=== PATIENT | female | born 1940 | race Caucasian/White ===

== ENCOUNTER 2016-10-31 18:18 | Emergency (ER) | payer MEDICARE, BC ==
[2016-10-31] MEDS ORDERED: NORMAL SALINE 1,000 ML IV ONE (18:39)
[2016-10-31 19:05] LABS: Hematocrit 41.7 % (37.0-47.0); Hemoglobin 14.2 gm/dL (12.5-16.0); Mean Cell Volume 93.1 fl (78-100); Mean Corpuscular Hemoglobin 31.7 pg (27-31); Mean Corpuscular Hgb Conc 34.1 g/dl (32-36); Mean Platelet Volume 10.4 fl (6.0-9.5); Neutrophil # 6.4 K/mm3 (1.3-6.0); Neutrophil % 85.5 % (42-75.0); Platelet Count 142 K/mm3 (150-450); Red Blood Count 4.48 M/mm3 (4.2-5.4); Red Cell Distribution Width 12.9 % (11.5-14.0); White Blood Count 7.5 K/mm3 (4.0-10.5)
[2016-10-31 19:17] LABS: Albumin * 3.9 gm/dl (3.4-5.0); Anion Gap 11.9 mmol/L (6.8-13.8); BUN/Creatinine Ratio 27.1 (9.0-21.6); Bilirubin, Total 0.8 mg/dL (0.0-1.1); Ca. Corrected For Albumin 9.8 mg/dL (8.4-10.2); Carbon Dioxide 26.4 mmol/L (24-32.6); Potassium 3.3 mmol/L (3.4-4.6)
--- NOTE | 2016-10-31 19:30 | ERNOTE ---
<Gissell Horn - Last Filed: 10/31/16 19:38> Neuro HPI ER Record Date of Service: 10/31/16 Time Seen by Provider: 10/31/16 18:33 Source: family Immunizations: IMMUNIZATION HX History of Influenza Vaccine Yes Hx Pneumococcal Vaccination No Allergies/Adverse Reactions: Allergies Allergy/AdvReac Type Severity Reaction Status Date / Time alprazolam [From Xanax] Allergy Unknown Verified 10/31/16 18:34 gabapentin Allergy Unknown Verified 10/31/16 18:34 hydroxyzine Allergy Unknown Verified 10/31/16 18:34 losartan [Losartan] Allergy Unknown Verified 10/31/16 18:34 scopolamine Allergy Unknown Verified 10/31/16 18:34 sulindac [Sulindac] Allergy Unknown Verified 10/31/16 18:34 duloxetine HCl AdvReac Intermediate memory loss Verified 10/31/16 18:34 [From Cymbalta] Home Medications: HOME MEDICATIONS Aspirin [Aspirin Enteric Coated] 81 mg PO DAILY 05/06/13 [Last Taken Unknown] Gemfibrozil [Lopid] 600 mg PO BID 05/06/13 [Last Taken Unknown] Ginkgo Biloba 120 mg PO DAILY 05/06/13 [Last Taken Unknown] Simvastatin [Zocor] 40 mg PO DAILY 05/06/13 [Last Taken Unknown] Levothyroxine Sodium [Synthroid] 150 mcg PO DAILY 10/29/14 [Last Taken Unknown] Multivit with Iron-Minerals [Central-Simran For Seniors] 1 tab PO DAILY 11/12/14 [ Last Taken Unknown] amLODIPine BESYLATE [Norvasc] 2.5 mg PO DAILY 03/03/15 [Last Taken Unknown] Aspirin 325 mg PO PRN PRN 10/31/16 [Last Taken Unknown] Benzonatate [Tessalon Perle] 100 mg PO TID PRN #30 capsule 10/31/16 [Last Taken Unknown] Calcium Carb &Cit/Magnesium Ox [Calmag Thins Tablet] 1 each PO HS 10/31/16 [ Last Taken Unknown] Carboxymethylcellulose Sodium [Thera Tears] 1 drop EACHEYE DAILY 10/31/16 [Last Taken Unknown] Doxycycline Hyclate [Morgidox] 100 mg PO BID #14 capsule 10/31/16 [Last Taken Unknown] Fluticasone Propionate [Flonase] 1 spray NS DAILY 10/31/16 [Last Taken Unknown] Hydrochlorothiazide [Microzide] 12.5 mg PO DAILY 10/31/16 [Last Taken Unknown] Loratadine [Allergy Relief] 10 mg PO DAILY 10/31/16 [Last Taken Unknown] - History of Present Illness Narrative: Here for weakness, cough and fever which began yesterday and became progressively worse. Today pt feels weak and has had no food or drinks. Review of Systems - Review of Systems Constitutional: Present: weakness, fatigue, malaise, other - pt is a poor historian ENT: Present: no symptoms reported Respiratory: Present: cough Cardiology: Present: no symptoms reported Gastrointestinal/Abdominal: Present: no symptoms reported - Patient's Past Medical History Patient History - Medical: No pertinent hx Patient History - Cardiac/Respiratory: No pertinent hx Patient History - Cancer: No Hx of Cancer Patient History - Surgical Procedures: Cholecystectomy, Hysterectomy Patient History - Other: None - Social History Living Situations: home Smoking Status: Former smoker Alcohol Use: none Drug Use: none - Immunizations Hx Pneumococcal Vaccination: No History of Influenza Vaccine: Yes Physical Exam - Physical Exam General Appearance: Present: no apparent distress, other - pt has dementia and does not respond readily. She stares at me when questions are asked. she does have a fever for which she was given Tylenol Ears, Nose, Throat: Present: normal ENT inspection Neck: Present: normal inspection, nontender Respiratory: Present: no respiratory distress, normal breath sounds, lungs clear Gastrointestinal/Abdominal: Present: normal bowel sounds, nondistended, soft Extremity Exam: Present: normal inspection, non-tender, no edema Skin Exam: Present: normal color, warm/dry, cool/dry ED Progress - Results and Orders Patient's Lab Results:: I have reviewed the patient's lab results. - Vital Signs Patient's Vital Signs:: I have reviewed the patient's vital signs. Vital Signs: Vital Signs 10/31/16 10/31/16 18:24 18:44 Temperature 38.6 C H Pulse Rate 98 90 Respiratory 12 Rate Blood Pressure 141/67 O2 Sat by Pulse 93 Oximetry - Progress/Reassessment Chief Complaint: Altered Mental Status - Transfer of Care Physician Sign Out: Gissell Horn Receiving Physician: Truong Bolivar Pending Results: Labs Departure Clinical Impression: Pneumonia Altered mental status, unspecified Qualifiers: Altered mental status type: unspecified Qualified Code(s): R41.82 - Altered mental status, unspecified - Departure Disposition: Home self-care Condition: Good Instructions: Community-Acquired Pneumonia, Adult, [id number] Print Language: Mongolian Additional Instructions: Follow up with your doctor in tomorrow. Return to the ED as needed. Referrals: Graham Jackson DO [Primary Care Provider] - Prescriptions: Benzonatate [Tessalon Perle] 100 mg PO TID PRN #30 capsule PRN Reason: Cough Doxycycline Hyclate [Morgidox] 100 mg PO BID #14 capsule <Truong Bolivar - Last Filed: 10/31/16 21:55> Neuro HPI ER Record Immunizations: IMMUNIZATION HX History of Influenza Vaccine Yes Hx Pneumococcal Vaccination No ED Progress - Results and Orders Patient's Lab Results:: I have reviewed the patient's lab results. - Vital Signs Patient's Vital Signs:: I have reviewed the patient's vital signs. Vital Signs: Vital Signs 10/31/16 10/31/16 10/31/16 18:24 18:44 19:29 Temperature 38.6 C H 37.9 C H Pulse Rate 98 90 96 Respiratory 12 16 Rate Blood Pressure 141/67 141/64 O2 Sat by Pulse 93 96 Oximetry 10/31/16 20:11 Temperature 38.3 C H Pulse Rate 93 Respiratory 16 Rate Blood Pressure 132/59 O2 Sat by Pulse 93 Oximetry - Progress/Reassessment Progress Note-Subjective: 10/31/16 21:48 After nebulizer treatment the o2 sat was 100%. She was ambulated twice, on each trial there was a desaturation to less than 90%. The patient is asymptomatic after ambulation, and does not want to be admitted. It is suspected that there is a pneumonia that is not currently seen on the chest x-ray. She will be discharged with a prescription for Doxycycline and Tessalon pearls. - Transfer of Care Additional Notes: The care of the patient was picked up at the change of shift. At this time the patient is Ox 3, and appears comfortable. Awaiting the UA specimen.
[2016-10-31] MEDS ORDERED: ACETAMINOPHEN 325 MG TABLET PO ONE (19:34)
[2016-10-31] MEDS ORDERED: ACETAMINOPHEN 325 MG TABLET ONE (19:36)
[2016-10-31] MEDS ORDERED: POTASSIUM CHLORIDE 20 MEQ TABLET.SA PO ONE (19:45)
[2016-10-31] MEDS ORDERED: POTASSIUM CHLORIDE 20 MEQ TABLET.SA ONE (20:04)
[2016-10-31 20:12] VITALS: BP 132/59
[2016-10-31 20:33] LABS: Urine Bilirubin Negative (NEGATIVE); Urine Blood Negative /ul (NEGATIVE); Urine Ketone Negative (NEGATIVE); Urine Nitrite Negative (NEGATIVE); Urine Protein Negative (NEGATIVE); Urine Urobilinogen Normal (NORMAL)
[2016-10-31 20:42] LABS: Urine Appearance Clear; Urine Color Yellow
[2016-10-31 20:43] LABS: Urine Bacteria None Seen; Urine RBC None Seen /hpf (0-5); Urine WBC None Seen /hpf (0-5)
[2016-10-31 20:45] LABS: Cocaine Ur Negative (NEGATIVE); Urine Barbiturate Negative (NEGATIVE); Urine Benzodiazepines Negative (NEGATIVE); Urine Opiates Negative (NEGATIVE); Urine PCP Negative (NEGATIVE); Urine THC Negative (NEGATIVE)
[2016-10-31] MEDS ORDERED: ALBUTEROL SULFATE 2.5 MG/0.5 ML VIAL.NEB IH ONE ×4 (20:49→21:31)
[2016-10-31] MEDS ORDERED: DOXYCYCLINE HYCLATE 100 MG TABLET PO ONE (20:50)
[2016-10-31] MEDS ORDERED: DOXYCYCLINE HYCLATE 100 MG TABLET ONE (21:06)
== END 2016-10-31 22:10 | disposition home or self-care (01) ==
LOC: ER 18:18
DX: J18.9 Pneumonia, unspecified organism (principal); R41.82 Altered mental status, unspecified; Z87.891 Personal history of nicotine dependence
CPT/HCPCS: 36415; 70450; 71020; 80053; 81001; 83605; 85025; 87040; 87400; 99283; G0479

== ENCOUNTER 2017-05-10 20:45 | Emergency (ER) | payer MEDICARE, BC ==
--- NOTE | 2017-05-10 21:08 | ERNOTE ---
Medical Problem HPI - Narrative Date of Service: 05/10/17 - General Time Seen by Provider: 05/10/17 21:00 Source: patient, family, RN notes reviewed Exam Limitations: no limitations - Immun/Allergies/Home Medications Immunizations: IMMUNIZATION HX History of Influenza Vaccine Yes Hx Pneumococcal Vaccination No Allergies/Adverse Reactions: Allergies alprazolam [From Xanax] Allergy (Unknown, Verified 10/31/16 18:34) gabapentin Allergy (Unknown, Verified 10/31/16 18:34) hydroxyzine Allergy (Unknown, Verified 10/31/16 18:34) losartan [Losartan] Allergy (Unknown, Verified 10/31/16 18:34) scopolamine Allergy (Unknown, Verified 10/31/16 18:34) sulindac [Sulindac] Allergy (Unknown, Verified 10/31/16 18:34) duloxetine HCl [From Cymbalta] Adverse Reaction (Intermediate, Verified 18:34) memory loss Home Medications: HOME MEDICATIONS Aspirin [Aspirin Enteric Coated] 81 mg PO DAILY 05/06/13 [Last Taken Unknown] Gemfibrozil [Lopid] 600 mg PO BID 05/06/13 [Last Taken Unknown] Ginkgo Biloba 120 mg PO DAILY 05/06/13 [Last Taken Unknown] Simvastatin [Zocor] 40 mg PO DAILY 05/06/13 [Last Taken Unknown] Levothyroxine Sodium [Synthroid] 150 mcg PO DAILY 10/29/14 [Last Taken Unknown] Multivit-Min/FA/Lycopen/Lutein [Central-Simran For Seniors] 1 tab PO DAILY [Last Taken Unknown] amLODIPine BESYLATE [Norvasc] 2.5 mg PO DAILY 03/03/15 [Last Taken Unknown] Aspirin 325 mg PO PRN PRN 10/31/16 [Last Taken Unknown] Benzonatate [Tessalon Perle] 100 mg PO TID PRN #30 capsule 10/31/16 [Last Taken Unknown] Calcium Carb, Cit/Magnesium Ox [Calmag Thins Tablet] 1 each PO HS 10/31/16 [ Last Taken Unknown] Carboxymethylcellulose Sodium [Thera Tears] 1 drop EACHEYE DAILY 10/31/16 [Last Taken Unknown] Doxycycline Hyclate [Morgidox] 100 mg PO BID #14 capsule 10/31/16 [Last Taken Unknown] Fluticasone Propionate [Flonase] 1 spray NS DAILY 10/31/16 [Last Taken Unknown] Hydrochlorothiazide [Microzide] 12.5 mg PO DAILY 10/31/16 [Last Taken Unknown] Loratadine [Allergy Relief] 10 mg PO DAILY 10/31/16 [Last Taken Unknown] - History of Present History Narrative: This is a 76-year-old female who is a resident at a [facility]. The patient has been having increasing memory difficulty over the last several months. The information I obtained is from the patient's son. This son states that she was fine a year ago but over the last year she started having some memory problems. Over the last few months the memory problems have also progressed into emotional lability. The patient will become agitated, aggressive, belligerent at times. Very little can be done to calm her down when this happens. Apparently this happened today. Her is actually fairly cognizant was in the room with her and noticed her nodding off to sleep. He thought that she was fine when she went to sleep. She woke up approximately half an hour later yelling and combative. She did not seem to understand where she was or the people around her. The patient denies having any recollection of this. The patient at this time has no complaints except being frustrated at being held here in the hospital Timing: gone now Severity: severe Modifying Factors - (Improves): Present: other - nothing Modifying Factors - (Worsens): Present: other - nothing Review of Systems - Review of Systems Constitutional: Present: no symptoms reported EYE: Present: no symptoms reported ENT: Present: no symptoms reported Respiratory: Present: no symptoms reported Cardiology: Present: no symptoms reported, other - the patient completely and adamantly denies any complaints at the present. The only information I have is her confusion which was per the son. Gastrointestinal/Abdominal: Present: no symptoms reported Genitourinary: Present: no symptoms reported Musculoskeletal: Present: no symptoms reported Skin: Present: no symptoms reported Neurological: Present: no symptoms reported Endocrine: Present: no symptoms reported Hematologic/Lymphatic: Present: no symptoms reported Psych: Present: no symptoms reported All Other Systems: All systems neg except as marked - Patient's Past Medical History Patient History - Medical: No pertinent hx Patient History - Cardiac/Respiratory: No pertinent hx Patient History - Cancer: No Hx of Cancer Patient History - Surgical Procedures: Cholecystectomy, Hysterectomy Patient History - Other: None - Social History Living Situations: home Alcohol Use: none Drug Use: none - Immunizations Hx Pneumococcal Vaccination: No History of Influenza Vaccine: Yes Physical Exam - Physical Exam General Appearance: Present: wd/wn, alert, no apparent distress. Absent: anxious, lethargic Head Exam: Present: normal inspection, no evidence of injury. Absent: Leon's Sign, contusions, ecchymosis, flap, lacerations Eye Exam: Normal inspection: bilateral, PERRL: bilateral, EOMI: bilateral Ears, Nose, Throat: Present: normal ENT inspection, normal pharynx Neck: Present: normal inspection, nontender, supple, full range of motion Respiratory: Present: no respiratory distress, normal breath sounds, no accessory muscle use, chest nontender, lungs clear Cardiovascular/Chest: Present: regular rate, rhythm, no murmur, normal peripheral pulses Gastrointestinal/Abdominal: Present: normal bowel sounds, nontender, nondistended, soft, no organomegaly Rectal Exam: Present: nontender, normal rectal tone Back Exam: Present: normal inspection, normal range of motion, no CVA tenderness , no vertebral tenderness Extremity Exam: Present: normal inspection, non-tender, no edema Neurological Exam: Present: alert, normal mood/affect, no motor/sensory deficits , other - patient is not oriented to time. She does not know the year, month, day. She does recognize her family. Per the son this is her baseline. Skin Exam: Present: normal color, warm/dry Lymphatic Exam: Present: no adenopathy ED Progress - EKG EKG Comments: Patient's EKG demonstrates normal sinus rhythm. She does have what appears to be new T-wave inversions in V3 and V4. Troponin was performed and is negative. No signs of acute ischemia in the form of ST elevation or depression - X-Ray X-Ray #1 X-Ray: chest Interpretation: Interp. by me - no acute cardiopulmonary disease Departure - Departure Clinical Impression: Hypokalemia, Agitation Disposition: Other health care facility Condition: Stable Instructions: Hypokalemia Additional Instructions: As we discussed, you need to recognize that at times he will become acutely confused. You need to listen to the people around to an trusting her caregivers. Please do not argue with staff. Your potassium level is low. You should eat a banana or have a multivitamin each day. I want you to call your family doctor and set up a follow-up appointment. Certainly if you develop new or worrisome symptoms she should return to the ER. If you become agitated tonight the staff can give you the 1/2 mg of Xanax which I have prescribed. Referrals: Graham Jackson DO [Primary Care Provider] -
--- OUTSIDE RECORDS SUMMARY | 2017-05-10 21:19 | XMS REPORT | Clinical Summary ---
:1940 Author Organization [facility] Address Unavailable [place] [id number] Care Team Providers Name Role Phone Unavailable Primary Care Provider Unavailable Source Comments This disclosure is being made pursuant to the [employer] program and maynot contain all information available regarding this patient.[facility] Allergies Not on File Current Medications Be aware that medications may not be up to date as of this document. Alwaysverify current medications with the patient. Not on file Active Problems Not on file Social History Tobacco Use Types Packs/Day Years Used Date Never Assessed Sex Assigned at Date Recorded Not on file Last Filed Vital Signs Not on file Plan of Treatment Health Maintenance Due Date Last Done Comments Tetanus/Pertussis (1 - Tdap) 1957 Well Adult Visit 1988 Zoster Vaccine 60+ 1998 Bone Density 2003 Pneumococcal Low/Medium Risk 65+ (1 of 2 - PCV13) 2003 INFLUENZA IMMUNIZATION (#1) 2017 Results Not on filefrom Last 3 Months
[2017-05-10 21:23] LABS: Hemoglobin 13.1 gm/dL (12.5-16.0); Mean Corpuscular Hemoglobin 32.9 pg (27-31); Mean Corpuscular Hgb Conc 35.4 g/dl (32-36); Mean Platelet Volume 10.1 fl (6.0-9.5); Neutrophil # 4.6 K/mm3 (1.3-6.0); Neutrophil % 64.7 % (42-75.0); Platelet Count 183 K/mm3 (150-450); Red Blood Count 3.98 M/mm3 (4.2-5.4); Red Cell Distribution Width 12.9 % (11.5-14.0); White Blood Count 7.1 K/mm3 (4.0-10.5)
[2017-05-10 21:37] LABS: Albumin * 4.3 gm/dl (3.4-5.0); Anion Gap 17.9 mmol/L (6.8-13.8); BUN/Creatinine Ratio 20.7 (9.0-21.6); Bilirubin, Total 1.1 mg/dL (0.0-1.1); Ca. Corrected For Albumin 9.7 mg/dL (8.4-10.2); Calcium * 10.3 mg/dL (7.9-10.9); Potassium 2.9 mmol/L (3.4-4.6); Total Protein 7.4 gm/dL (6.2-8.2)
[2017-05-10] MEDS ORDERED: POTASSIUM CHLORIDE 20 MEQ TABLET.SA PO ONE (21:38)
[2017-05-10 22:07] LABS: Urine Bilirubin Negative (NEGATIVE); Urine Blood Negative /ul (NEGATIVE); Urine Ketone Negative (NEGATIVE); Urine Nitrite Negative (NEGATIVE); Urine Protein Negative (NEGATIVE); Urine Urobilinogen Normal (NORMAL)
[2017-05-10] MEDS ORDERED: POTASSIUM CHLORIDE 20 MEQ TABLET.SA ONE (22:21)
[2017-05-10 22:24] LABS: Cocaine Ur Negative (NEGATIVE); Urine Barbiturate Negative (NEGATIVE); Urine Benzodiazepines Negative (NEGATIVE); Urine Opiates Negative (NEGATIVE); Urine PCP Negative (NEGATIVE); Urine THC Negative (NEGATIVE)
[2017-05-10 22:39] LABS: Urine Appearance Clear; Urine Color Yellow
[2017-05-10 22:40] LABS: Urine Bacteria 2+; Urine Mucus Many - 3+; Urine RBC 0-5 /hpf (0-5); Urine WBC 0-5 /hpf (0-5); Urine Yeast Few - 1+
[2017-05-10] MEDS ORDERED: CIPROFLOXACIN HCL 250 MG TABLET ONE (23:02)
[2017-05-10 23:23] LABS: Methemoglobin % 0.3 % (0.41-1.15)
[2017-05-10 23:27] LABS: Carboxyhemoglobin % 1.8 % (0.5-1.5)
[2017-05-10] MEDS ORDERED: ALPRAZolam 0.25 MG TABLET PO ONE (23:39)
[2017-05-10] MEDS ORDERED: LORazepam 1 MG TABLET ONE (23:44)
[2017-05-10] MEDS ORDERED: ALPRAZolam 0.25 MG TABLET ONE (23:56)
[2017-05-11 03:33] VITALS: BP 130/74
== END 2017-05-11 00:42 | disposition short-term general hospital (02) ==
LOC: ER 20:45
DX: E87.6 Hypokalemia (principal); R45.1 Restlessness and agitation

== ENCOUNTER 2019-10-19 10:11 | Observation (INO) ==
--- NOTE | 2019-10-19 10:40 | ERNOTE ---
Neuro HPI ER Record Date of Service: 10/19/19 Presenting Symptoms: weakness, difficulty walking Time Seen by Provider: 10/19/19 10:23 Source: family Exam Limitations: dementia Immunizations: IMMUNIZATION HX Immunizations Up to Date Yes History of Influenza Vaccine More Information Required Hx Pneumococcal Vaccination More Information Required Allergies/Adverse Reactions: Allergies Allergy/AdvReac Type Severity Reaction Status Date / Time alprazolam [From Xanax] Allergy Unknown Verified 10/19/19 13:02 gabapentin Allergy Unknown Verified 10/19/19 13:02 hydroxyzine Allergy Unknown Verified 10/19/19 13:02 losartan [Losartan] Allergy Unknown Verified 10/19/19 13:02 scopolamine Allergy Unknown Verified 10/19/19 13:02 sulindac [Sulindac] Allergy Unknown Verified 10/19/19 13:02 duloxetine HCl AdvReac Intermediate memory loss Verified 10/19/19 13:02 [From Cymbalta] bupropion [From Zyban] AdvReac Unknown Verified 10/19/19 13:02 lorazepam AdvReac Unknown Verified 10/19/19 13:02 phenylephrine AdvReac Unknown Verified 10/19/19 13:02 [From Murocoll-2] Home Medications: HOME MEDICATIONS Aspirin [Aspirin Enteric Coated] 81 mg PO DAILY 05/06/13 [Last Taken Unknown] calcium carb-magnesium oxide-vit C 400 mg calcium-117 mg-167 mg tablet 1 tab PO DAILY tab 04/10/18 [Last Taken Unknown] carboxymethylcellulose sodium 0.5 % eye drops 1 drp OP QID PRN ml 04/10/18 [Last Taken Unknown] gemfibrozil 600 mg tablet 600 mg PO BID #60 tab 05/23/18 [Last Taken Unknown] docusate sodium 100 mg capsule 100 mg PO DAILY #30 cap 06/26/18 [Last Taken Unknown] polyethylene glycol 3350 17 gram/dose oral powder 17 g PO DAILY PRN #255 g 06/26/18 [Last Taken Unknown] donepezil 10 mg tablet 10 mg PO HS #30 tab 06/30/18 [Last Taken Unknown] simvastatin 40 mg tablet 40 mg PO QPM #30 tab 10/01/18 [Last Taken Unknown] acetaminophen 325 mg tablet 650 mg PO Q6H PRN #60 tab 02/16/19 [Last Taken Unknown] haloperidol lactate 2 mg/mL oral concentrate 2 mg PO QPM ml 03/30/19 [Last Taken Unknown] levothyroxine 150 mcg tablet 150 mcg PO DAILY #30 tab 03/30/19 [Last Taken Unknown] Multivitamin [One-Daily Multi-Vitamin] 1 tab PO DAILY 04/04/19 [Last Taken Unknown] risperidone 0.5 mg tablet 0.5 mg PO Q12H PRN #60 tab 07/15/19 [Last Taken Unknown] ginkgo biloba leaf extract 60 mg capsule 60 mg PO DAILY #30 cap 07/22/19 [Last Taken Unknown] sertraline 100 mg tablet 150 mg PO DAILY #135 tab 09/14/19 [Last Taken Unknown] - Pain Score Pain Score #1 Pain Score: 0 - History of Present Illness Narrative: The patient is a 79 year old female who presents for weakness which has been present since Saturday. There are associated symptoms of increased fatigue. The patient denies pain and has no objective signs of pain. There are no alleviating factors. There are no aggravating factors. Previous treatments have included: none. The past medical history includes: CVA, dementia, HTN, HLD and hypothyroid The social history is positive for former smoker. The patient has had no ill contacts. Son states that he was notified by care center on Saturday that patient was having increased weakness as well as increased mental status change but her vitals were stable and they opted not to send her to the ER for evaluation. Son states he saw patient on Saturday and Saturday and noted her to have slight droop to left side of face. Son also states that patient was having gait changes, typically ambulatory with walking but increased weakness as well as inability to continue straight during activity. Review of Systems - Narrative Narrative: Patient has dementia but is oriented to self and place. Patient disoriented to situation. ROS reviewed with patient as well as son at bedside. - Review of Systems Constitutional: Present: weakness. Absent: recent illness, fever ENT: Present: no symptoms reported. Absent: ear pain, nasal drainage, sore throat Respiratory: Absent: cough Cardiology: Present: no symptoms reported. Absent: chest pain Gastrointestinal/Abdominal: Present: no symptoms reported. 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 Dementia, unspecified, with behavioral disturbance Onset Date: 06/05/17 Hemorrhoids Hyperlipemia Hypertension Hypokalemia Hypothyroidism Memory loss Meniere's disease Osteopenia Basal cell carcinoma Dizziness Surgical History: Surgical History (Last Reviewed 10/19/19 @ 12:49 by KWAME Dunne) H/O foot surgery UNSPECIFIED X3 History of cataract extraction Hx of cholecystectomy Hx of hernia repair Hx of hysterectomy Hx of lumpectomy Hx of shoulder replacement RIGHT Family History: Family History (Last Reviewed 10/19/19 @ 12:49 by KWAME Dunne) Other Unknown family medical history Social History: (Last Reviewed 10/19/19 @ 12:49 by KWAME Dunne) Social History: Marital status: / lives independently: No Service: No Tobacco: Smoking Status: Former smoker Alcohol: alcohol intake: never Substance Use: substance use type: does not use Dietary Habits: caffeine: No Personal Safety: victim of physical abuse: No victim of emotional abuse: No Physical Exam - Physical Exam General Appearance: Present: wd/wn, alert, no apparent distress Head Exam: Present: normal inspection, no evidence of injury Eye Exam: Normal inspection: bilateral, PERRL: bilateral, EOMI: bilateral Neck: Present: normal inspection, nontender Respiratory: Present: no respiratory distress, normal breath sounds, no accessory muscle use, lungs clear Cardiovascular/Chest: Present: regular rate, rhythm, no murmur Gastrointestinal/Abdominal: Present: normal bowel sounds, nontender, nondistended, soft, no organomegaly Neurological Exam: Present: alert, normal mood/affect, no motor/sensory deficits, 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 Absent: disoriented to person, disoriented to place Tyrel Coma Scale - Assess Eye Opening: Spontaneous Motor: Obeys Commands Verbal: Confused - Total Coma Scale Total: 14 Initial Stroke Assessment - NIH Stroke Scale Level of Consciousness: Alert LOC Questions (Year and Age): Answers neither correctly LOC Commands (open/close eyes/fist): Performs both correctly Lateral Gaze Paresis: None Visual Field Loss: No visual loss Facial Palsy: Minor paralysis - left Right Arm Motor (10 sec hold): No drift Left Arm Motor (10 sec hold): No drift Right Leg Motor (5 sec hold): No drift Left Leg Motor (5 sec hold): No drift Limb Ataxia (finger/nose heel/snow): Absent Sensory Loss (pinprick arms/legs/face): No sensory loss Language Aphasia (description/naming/reading): No aphasia; normal Dysarthria (speech clarity): Normal articulation Neglect Inattention (visual/tactile/auditory/spatial/person): No neglect Initial Stroke Scale Score:: 3 Progress - Date and Time Seen: Date and Time: 10/19/19 10:28 Patient evaluated during triage. 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 10/19/19 12:00 Discussed results of testing as well as plan of care with son at bedside. Patient having intermittent periods of agitation and restlessness. Nurse assisting patient to commode, patient able to assist with transfers. 10/19/19 12:39 Case discussed with , will admit for observation with plan of MRI to further evaluate symptoms of weakness and gait changes. - Results and Orders Patient's Lab Results:: I have reviewed the patient's lab results. - Vital Signs Patient's Vital Signs:: I have reviewed the patient's vital signs. Vital Signs: Vital Signs 10/19/19 10:28 Temperature 36.3 C Pulse Rate 59 L Respiratory Rate 20 Blood Pressure 194/84 H O2 Sat by Pulse Oximetry 96 - X-Ray X-Ray #1 X-Ray: chest Interpretation: Reviewed by me X-ray Comments: IMPRESSION: 1. NO ACUTE CARDIOPULMONARY PROCESS. Electronically signed by Gabe Camacho M.D.. - CT/Ultrasound CT/Ultrasound Narrative: IMPRESSION: 1. NO ACUTE INTRACRANIAL PROCESS. IF THERE IS CONTINUED CLINICAL CONCERN, FOLLOW-UP CT OR MRI IS RECOMMENDED. Electronically signed by Gabe Camacho M.D.. - Progress/Reassessment Chief Complaint: Altered Mental Status Departure Clinical Impression: Weakness, Gait disturbance - Departure Disposition: Still a patient Condition: Fair
[2019-10-19 10:45] LABS: Hematocrit 39.3 % (37.0-47.0); Hemoglobin 13.2 gm/dL (12.5-16.0); Mean Cell Volume 95.2 fl (78-100); Mean Corpuscular Hgb Conc 33.6 g/dl (32-36); Mean Platelet Volume 9.6 fl (8-12.5); Neutrophil # 4.2 K/mm3 (1.3-6.0); Neutrophil % 66.8 % (42-75.0); Platelet Count 197 K/mm3 (150-450); Red Blood Count 4.13 M/mm3 (4.2-5.4); White Blood Count 6.3 K/mm3 (4.0-10.5)
[2019-10-19 11:00] LABS: Albumin * 3.6 gm/dl (3.4-5.0); BUN/Creatinine Ratio 25.3 (9.0-21.6); Bilirubin, Total 0.6 mg/dL (0.0-1.1); Ca. Corrected For Albumin 10.5 mg/dL (8.4-10.2); Calcium * 10.5 mg/dL (7.9-10.9); Carbon Dioxide 27.8 mmol/L (24-32.6); Potassium 3.8 mmol/L (3.4-4.6); Total Protein 7.1 gm/dL (6.2-8.2)
[2019-10-19 11:01] LABS: Prothrombin Time (Patient) 11.2 Seconds (9.1-10.7)
[2019-10-19 12:04] LABS: INR 1.14 INR (0.92-1.08); Partial Thrombolplastin Time 28.4 Seconds (24-32)
[2019-10-19 12:54] LABS: Urine Bilirubin Negative (NEGATIVE); Urine Blood Negative /ul (NEGATIVE); Urine Ketone Negative (NEGATIVE); Urine Nitrite Negative (NEGATIVE); Urine Protein Negative (NEGATIVE); Urine Urobilinogen Normal (NORMAL)
[2019-10-19 13:00] LABS: Urine Appearance Clear (CLEAR); Urine Bacteria 1+; Urine Color Yellow; Urine RBC None Seen /hpf (0-5); Urine WBC 0-5 /hpf (0-5)
[2019-10-19] MEDS ORDERED: POLYETHYLENE GLYCOL 3350 17 GM PACKET PO PRN (15:23)
[2019-10-19] MEDS ORDERED: ACETAMINOPHEN 325 MG TABLET PO PRN (15:23)
[2019-10-19] MEDS ORDERED: POLYVINYL ALCOHOL 150 DROP BTL EACHEYE PRN (15:23)
[2019-10-19] MEDS: risperiDONE 0.25 MG TABLET PO PRN (16:42)
[2019-10-19] MEDS ORDERED: HALOPERIDOL 1 MG TABLET PO SCH (17:00)
[2019-10-19] MEDS ORDERED: SIMVASTATIN 40 MG TABLET PO SCH (17:00)
[2019-10-19] MEDS ORDERED: LORazepam 2 MG/ML DISP.SYRIN IV ONE (19:00)
[2019-10-19] MEDS ORDERED: traZODone HCL 50 MG TABLET PO SCH (21:00)
[2019-10-19] MEDS ORDERED: DONEPEZIL HCL 10 MG TABLET PO SCH (21:00)
[2019-10-19] MEDS: GEMFIBROZIL 600 MG TABLET PO SCH (23:18)
[2019-10-20] MEDS ORDERED: LEVOTHYROXINE SODIUM 150 MCG TABLET PO SCH (07:00)
--- NOTE | 2019-10-20 08:12 | HP ---
Chief Complaint - Chief Complaint Date of Service: 10/19/19 Time of Service: 16:00 Chief Complaint: Weakness, facial droop History of Present Illness: Sidney is an 79 yo female who resides in the memory unit at [facility]. She has Alzheimer's dementia which has been progressively getting worse over the last year. Last week she was noted to be getting even weaker than normal. She did not have any focal weakness. Over the weekend it was noted that she had facial drooping and son reports leaning to the right. Today she reported had more difficulty with walking, was very tearful. It is reported she was having left sided facial droop in the ER. I do not appreciate any abnormality and the son reports it had been the right with right sided leaning. He reports she has been having more problems sleeping and being restless at night. 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 Dementia, unspecified, with behavioral disturbance Onset Date: 06/05/17 Hemorrhoids Hyperlipemia Hypertension Hypokalemia Hypothyroidism Memory loss Meniere's disease Osteopenia Basal cell carcinoma Dizziness Surgical History: Surgical History (Last Reviewed 10/19/19 @ 13:02 by Edison Fry RN) H/O foot surgery UNSPECIFIED X3 History of cataract extraction Hx of cholecystectomy Hx of hernia repair Hx of hysterectomy Hx of lumpectomy Hx of shoulder replacement RIGHT Family History: Family History (Last Reviewed 10/19/19 @ 13:02 by Edison Fry RN) Other Unknown family medical history Social History: (Last Reviewed 10/19/19 @ 13:02 by Edison Fry RN) Social History: Marital status: / lives independently: No Service: No Tobacco: Smoking Status: Former smoker Alcohol: alcohol intake: never Substance Use: substance use type: does not use Dietary Habits: caffeine: No Personal Safety: victim of physical abuse: No victim of emotional abuse: No Review Of Systems (GEN) - Review of Systems Generalized/Overall Review: Present: Weakness. Absent: Chills, Fever EENTM: Present: No Symptoms Reported Respiratory: Absent: Cough, Shortness of Breath Cardiac: Absent: Chest Pain, Edema Abdominal: Absent: Nausea, Vomiting Genitourinary: Present: No Symptoms Reported Musculoskeletal: Present: No Symptoms Reported Neurological: Present: Anxiety, Emotional Problems, Weakness Skin: Present: No Symptoms Reported Endocrine: Present: No Symptoms Reported Immunizations: IMMUNIZATION HX Immunizations Up to Date Yes History of Influenza Vaccine More Information Required Hx Pneumococcal Vaccination More Information Required Allergies/Adverse Reactions: Allergies Allergy/AdvReac Type Severity Reaction Status Date / Time alprazolam [From Xanax] Allergy Unknown Verified 10/19/19 13:02 gabapentin Allergy Unknown Verified 10/19/19 13:02 hydroxyzine Allergy Unknown Verified 10/19/19 13:02 losartan [Losartan] Allergy Unknown Verified 10/19/19 13:02 scopolamine Allergy Unknown Verified 10/19/19 13:02 sulindac [Sulindac] Allergy Unknown Verified 10/19/19 13:02 duloxetine HCl AdvReac Intermediate memory loss Verified 10/19/19 13:02 [From Cymbalta] bupropion [From Zyban] AdvReac Unknown Verified 10/19/19 13:02 lorazepam AdvReac Unknown Verified 10/19/19 13:02 phenylephrine AdvReac Unknown Verified 10/19/19 13:02 [From Murocoll-2] Home Medications: HOME MEDICATIONS Aspirin [Aspirin Enteric Coated] 81 mg PO DAILY 05/06/13 [Last Taken Unknown] calcium carb-magnesium oxide-vit C 400 mg calcium-117 mg-167 mg tablet 1 tab PO DAILY tab 04/10/18 [Last Taken Unknown] carboxymethylcellulose sodium 0.5 % eye drops 1 drp OP QID PRN ml 04/10/18 [Last Taken Unknown] gemfibrozil 600 mg tablet 600 mg PO BID #60 tab 05/23/18 [Last Taken Unknown] docusate sodium 100 mg capsule 100 mg PO DAILY #30 cap 06/26/18 [Last Taken Unknown] polyethylene glycol 3350 17 gram/dose oral powder 17 g PO DAILY PRN #255 g 06/26/18 [Last Taken Unknown] donepezil 10 mg tablet 10 mg PO HS #30 tab 06/30/18 [Last Taken Unknown] simvastatin 40 mg tablet 40 mg PO QPM #30 tab 10/01/18 [Last Taken Unknown] acetaminophen 325 mg tablet 650 mg PO Q6H PRN #60 tab 02/16/19 [Last Taken Unknown] haloperidol lactate 2 mg/mL oral concentrate 2 mg PO QPM ml 03/30/19 [Last Taken Unknown] levothyroxine 150 mcg tablet 150 mcg PO DAILY #30 tab 03/30/19 [Last Taken Unknown] Multivitamin [One-Daily Multi-Vitamin] 1 tab PO DAILY 04/04/19 [Last Taken Unknown] risperidone 0.5 mg tablet 0.5 mg PO Q12H PRN #60 tab 07/15/19 [Last Taken Unknown] ginkgo biloba leaf extract 60 mg capsule 60 mg PO DAILY #30 cap 07/22/19 [Last Taken Unknown] sertraline 100 mg tablet 150 mg PO DAILY #135 tab 09/14/19 [Last Taken Unknown] Exam - Exam Vital Signs: Vital Signs - Last Taken Temp 36.9 C 10/20/19 07:00 Pulse 48 L 10/20/19 07:00 Resp 20 10/20/19 07:00 BP 172/76 H 10/20/19 07:00 Pulse Ox 96 10/20/19 07:00 Constitutional: Present: Alert, Other - tearful. Absent: Oriented x3 ENT Exam: Present: hearing grossly normal Eye Exam: bilateral eye: normal inspection Respiratory: Present: lungs clear, normal breath sounds Cardiovascular/Chest: Present: regular rate, rhythm, no murmur Peripheral Pulses: radial (R): 2+, radial (L): 2+ Abdomen: Present: Normal bowel sounds, soft, nontender, nondistended Extremity: Present: normal inspection Skin Exam: Present: normal color, warm/dry, no cyanosis Lymphatic: Present: no adenopathy Neurologic: Present: unix manager II-XII nml as tested, no motor/sensory deficits, alert, disoriented x 3, other - general motor 4/5 throughout, no focal difference. Absent: sensory deficit Diagnostic Studies: Abnormal Lab Results 10/19/19 10/19/19 10/19/19 Range/Units 10:42 10:42 10:42 RBC 4.13 L (4.2-5.4) M/mm3 MCH 32.0 H (27-31) pg Lymphocytes # 1.41 L (1.5-3.5) k/mm3 ESR 38 H (0-15) mm/hr PT 11.2 H (9.1-10.7) Seconds INR (Anticoag Therapy) 1.14 H (0.92-1.08) INR Sodium (132-142) mmol/L Plasma Sodium (130-142) mmol/L Anion Gap (6.8-13.8) mmol/L BUN/Creatinine Ratio (9.0-21.6) Calcium Adj for Albumin (8.4-10.2) mg/dL Urine Bacteria (NONE) 10/19/19 10/19/19 Range/Units 10:42 12:22 RBC (4.2-5.4) M/mm3 MCH (27-31) pg Lymphocytes # (1.5-3.5) k/mm3 ESR (0-15) mm/hr PT (9.1-10.7) Seconds INR (Anticoag Therapy) (0.92-1.08) INR Sodium 143 H (132-142) mmol/L Plasma Sodium 143 H (130-142) mmol/L Anion Gap 14.0 H (6.8-13.8) mmol/L BUN/Creatinine Ratio 25.3 H (9.0-21.6) Calcium Adj for Albumin 10.5 H (8.4-10.2) mg/dL Urine Bacteria 1+ H (NONE) Microbiology 10/19/19 12:26 Urine Culture - Preliminary Urine,Catheterized No Growth Laboratory Results WBC 6.3 K/mm3 (4.0-10.5) 10/19/19 10:42 RBC 4.13 M/mm3 (4.2-5.4) L 10/19/19 10:42 Hgb 13.2 gm/dL (12.5-16.0) 10/19/19 10:42 Hct 39.3 % (37.0-47.0) 10/19/19 10:42 MCV 95.2 fl (78-100) 10/19/19 10:42 MCH 32.0 pg (27-31) H 10/19/19 10:42 MCHC 33.6 g/dl (32-36) 10/19/19 10:42 RDW 13.0 % (11.5-14.0) 10/19/19 10:42 Plt Count 197 K/mm3 (150-450) 10/19/19 10:42 MPV 9.6 fl (8-12.5) 10/19/19 10:42 Immature Gran % (Auto) 0.30 % (0.001-0.429) 10/19/19 10:42 Immature Gran # (Auto) 0.02 K/mm3 (0.000-0.0310) 10/19/19 10:42 Neutrophils % 66.8 % (42-75.0) 10/19/19 10:42 Lymphocytes % 22.3 % (20-51) 10/19/19 10:42 Monocytes % 8.1 % (0.0-9) 10/19/19 10:42 Eosinophils % 1.9 % (0.0-3.0) 10/19/19 10:42 Basophils % 0.6 % (0.0-1.0) 10/19/19 10:42 Nucleated RBC % 0.0 k/mm3 (0-1) 10/19/19 10:42 Neutrophils # 4.2 K/mm3 (1.3-6.0) 10/19/19 10:42 Lymphocytes # 1.41 k/mm3 (1.5-3.5) L 10/19/19 10:42 Monocytes # 0.5 k/mm3 (0.0-1.0) 10/19/19 10:42 Eosinophils # 0.1 k/mm3 (0.0-0.7) 10/19/19 10:42 Absolute Basophils 0.0 k/mm3 (0.0-0.1) 10/19/19 10:42 ESR 38 mm/hr (0-15) H 10/19/19 10:42 PT 11.2 Seconds (9.1-10.7) H 10/19/19 10:42 INR (Anticoag Therapy) 1.14 INR (0.92-1.08) H 10/19/19 10:42 PTT (Jerrica) 28.4 Seconds (24-32) 10/19/19 10:42 Sodium 143 mmol/L (132-142) H 10/19/19 10:42 Plasma Sodium 143 mmol/L (130-142) H 10/19/19 10:42 Potassium 3.8 mmol/L (3.4-4.6) 10/19/19 10:42 Chloride 105 mmol/L (97-106) 10/19/19 10:42 Carbon Dioxide 27.8 mmol/L (24-32.6) 10/19/19 10:42 Anion Gap 14.0 mmol/L (6.8-13.8) H 10/19/19 10:42 BUN 21 mg/dL (3-23) 10/19/19 10:42 Creatinine 0.83 mg/dL (0.4-1.4) 10/19/19 10:42 Est GFR (Non-Af Amer) 70 mL/min (60-130) 10/19/19 10:42 BUN/Creatinine Ratio 25.3 (9.0-21.6) H 10/19/19 10:42 Random Glucose 85 mg/dL (70-110) 10/19/19 10:42 Calcium 10.5 mg/dL (7.9-10.9) 10/19/19 10:42 Calcium Adj for Albumin 10.5 mg/dL (8.4-10.2) H 10/19/19 10:42 Total Bilirubin 0.6 mg/dL (0.0-1.1) 10/19/19 10:42 AST 34 U/L (0-48) 10/19/19 10:42 ALT 21 U/L (19-67) 10/19/19 10:42 Alkaline Phosphatase 129 U/L (50-170) 10/19/19 10:42 Total Protein 7.1 gm/dL (6.2-8.2) 10/19/19 10:42 Albumin 3.6 gm/dl (3.4-5.0) 10/19/19 10:42 Urine Color Yellow 10/19/19 12:22 Urine Appearance Clear (CLEAR) 10/19/19 12:22 Urine pH 7.0 pH (5.0-7.0) 10/19/19 12:22 Ur Specific [place] 1.010 SP.GR. (1.005-1.010) 10/19/19 12:22 Urine Protein Negative mg/dL (NEGATIVE) 10/19/19 12:22 Urine Glucose (UA) Negative mg/dL (NEGATIVE) 10/19/19 12:22 Urine Ketones Negative mg/dL (NEGATIVE) 10/19/19 12:22 Urine Blood Negative /ul (NEGATIVE) 10/19/19 12:22 Urine Nitrate Negative (NEGATIVE) 10/19/19 12:22 Urine Bilirubin Negative mg/dl (NEGATIVE) 10/19/19 12:22 Urine Urobilinogen Normal EU/dl (NORMAL) 10/19/19 12:22 Ur Leukocyte Esterase Negative /ul (NEGATIVE) 10/19/19 12:22 Urine RBC None seen /hpf (0-5) 10/19/19 12:22 Urine WBC 0-5 /hpf (0-5) 10/19/19 12:22 Ur Epithelial Cells 0-5 /hpf (0-5) 10/19/19 12:22 Urine Bacteria 1+ (NONE) H 10/19/19 12:22 Urine Culture Comments Culture to follow 10/19/19 12:22 Assessment/Plan - Narrative Narrative: Sidney is an 79 yo female with alzheimer's dementia with reported worsening weakness and acute facial droop. On exam this has appeared to resolve and there are mixed reports of it being left in the ER and soon reports right previously with right sided leaning. She does not have either of these at the moment. Head CT in the ER was normal. Labs were unremarkable. Will admit to observation to monitor neurofunction. Will plan to evaluate with MRI to investigate stroke. Her son reports she has not been sleeping. I will try trazodone to help with sleep cycle. Will check urine for UTI as a potential exacerbating factor. May need anesthesia sedation for MRI. Plan to discharge to [facility] tomorrow unless there is evidence of acute stroke and need for additional treatment. - Assessment/Plan (1) Facial droop Problem: Acute (2) Alzheimer's dementia with behavioral disturbance Problem: Chronic Qualifiers: Alzheimer's disease onset: late-onset Qualified Code(s): G30.1 - Alzheimer's disease with late onset; F02.81 - Dementia in other diseases classified elsewhere with behavioral disturbance (3) Weakness Problem: Acute
[2019-10-20] MEDS: GEMFIBROZIL 600 MG TABLET PO SCH (08:21)
[2019-10-20] MEDS: risperiDONE 0.25 MG TABLET PO PRN (08:23)
[2019-10-20] MEDS ORDERED: SERTRALINE HCL 50 MG TABLET PO SCH (09:00)
[2019-10-20] MEDS ORDERED: DOCUSATE SODIUM 100 MG CAPSULE PO SCH (09:00)
[2019-10-20] MEDS ORDERED: MULTIVITAMINS 1 CAP CAPSULE PO SCH (09:00)
[2019-10-20] MEDS ORDERED: ASPIRIN 81 MG TABLET.DR PO SCH (09:00)
--- NOTE | 2019-10-20 14:00 | DS ---
(1) Alzheimer's dementia with behavioral disturbance Problem: Chronic Qualifiers: Alzheimer's disease onset: late-onset Qualified Code(s): G30.1 - Alzheimer's disease with late onset; F02.81 - Dementia in other diseases classified elsewhere with behavioral disturbance (2) Weakness Problem: Acute Date of Discharge:: 10/20/19 Hospital Course: Sidney is an 79 yo female admitted due to concerns in neurological change. It was reported that she was having facial droop, increased, weakness, and leaning to the right. Some of these symptoms were noted in the ER but were resolved on my examination. Bloodwork, urine, and head CT were negative for acute abnormality. She was started on trazodone for restlessness at night and this seemed to help. She had no neurological change while in the hospital. I do not see a benefit for completing a MRI of her brain as this would not likely change her treatment. She has severe alzheimer's dementia with behavioral change at times. She is often tearful. I will continue trazodone as it is reported she does not sleep well at [facility]. She will be discharged there today. Procedures Performed: none Results and Findings: Pending Mircobiology Results 10/19/19 12:26 Urine,Catheterized Urine Culture - Preliminary No Growth Lab Pending Results 10/19/19 10:42: WBC 6.3, RBC 4.13 L, Hgb 13.2, Hct 39.3, MCV 95.2, MCH 32.0 H, MCHC 33.6, RDW 13.0, Plt Count 197, MPV 9.6, Immature Gran % (Auto) 0.30, Immature Gran # (Auto) 0.02, Neutrophils % 66.8, Lymphocytes % 22.3, Monocytes % 8.1, Eosinophils % 1.9, Basophils % 0.6, Nucleated RBC % 0.0, Neutrophils # 4.2, Lymphocytes # 1.41 L, Monocytes # 0.5, Eosinophils # 0.1, Absolute Basophils 0.0 10/19/19 10:42: ESR 38 H 10/19/19 10:42: PT 11.2 H, INR (Anticoag Therapy) 1.14 H, PTT (Jerrica) 28.4 10/19/19 10:42: Sodium 143 H, Plasma Sodium 143 H, Potassium 3.8, Chloride 105, Carbon Dioxide 27.8, Anion Gap 14.0 H, BUN 21, Creatinine 0.83, Est GFR (Non-Af Amer) 70, BUN/Creatinine Ratio 25.3 H, Random Glucose 85, Calcium 10.5, Calcium Adj for Albumin 10.5 H, Total Bilirubin 0.6, AST 34, ALT 21, Alkaline Phosphatase 129, Total Protein 7.1, Albumin 3.6 10/19/19 12:22: Urine Color Yellow, Urine Appearance Clear, Urine pH 7.0, Ur Specific [place] 1.010, Urine Protein Negative, Urine Glucose (UA) Negative, Urine Ketones Negative, Urine Blood Negative, Urine Nitrate Negative, Urine Bilirubin Negative, Urine Urobilinogen Normal, Ur Leukocyte Esterase Negative, Urine RBC None seen, Urine WBC 0-5, Ur Epithelial Cells 0-5, Urine Bacteria 1+ H, Urine Culture Comments Culture to follow Discharge Location: [facility] Disposition: Home self-care Condition: Poor Discharge Activity: Activity as tolerated Discharge Diet: General/regular food Referrals: Graham Jackson DO [Primary Care Provider] - (Follow up not needed unless wanted by family as change in environment can worsen symptoms.) Problem Oriented Discharge Instructions to Patient/Family: Dementia, Insomnia Prescriptions (Any new or edited meds): traZODone HCL [Desyrel] 50 mg PO HS #30 tab Transmission Status: Pending to [facility] Complete Home Medications List: Complete Home Medication List: Aspirin [Aspirin Enteric Coated] 81 mg PO DAILY 05/06/13 calcium carb-magnesium oxide-vit C 400 mg calcium-117 mg-167 mg tablet 1 tab PO DAILY tab 04/10/18 carboxymethylcellulose sodium 0.5 % eye drops 1 drp OP QID PRN ml 04/10/18 gemfibrozil 600 mg tablet 600 mg PO BID #60 tab 05/23/18 docusate sodium 100 mg capsule 100 mg PO DAILY #30 cap 06/26/18 polyethylene glycol 3350 17 gram/dose oral powder 17 g PO DAILY PRN #255 g 06/26/18 donepezil 10 mg tablet 10 mg PO HS #30 tab 06/30/18 simvastatin 40 mg tablet 40 mg PO QPM #30 tab 10/01/18 acetaminophen 325 mg tablet 650 mg PO Q6H PRN #60 tab 02/16/19 haloperidol lactate 2 mg/mL oral concentrate 2 mg PO QPM ml 03/30/19 levothyroxine 150 mcg tablet 150 mcg PO DAILY #30 tab 03/30/19 Multivitamin [One-Daily Multi-Vitamin] 1 tab PO DAILY 04/04/19 risperidone 0.5 mg tablet 0.5 mg PO Q12H PRN #60 tab 07/15/19 ginkgo biloba leaf extract 60 mg capsule 60 mg PO DAILY #30 cap 07/22/19 sertraline 100 mg tablet 150 mg PO DAILY #135 tab 09/14/19 traZODone HCL [Desyrel] 50 mg PO HS #30 tab 10/20/19
[2019-10-20 15:09] VITALS: BP 139/67
== END 2019-10-20 15:55 | disposition home or self-care (01) ==
LOC: MS 10:11 → ER 10:11 → MS 13:00
PROVIDERS: ADMIT Family Medicine; ATTEND Family Medicine
CPT/HCPCS: 36415; 70450; 71010; 71045; 80053; 81001; 85025; 85610; 85652; 85730; 87081; 87086; 93005; 96374; 97162; 97165; 99285; G0378

== ENCOUNTER 2020-04-01 13:28 | Observation (INO) ==
[2020-04-01 14:25] LABS: Hemoglobin 10.6 gm/dL (12.5-16.0); Mean Cell Volume 95.1 fl (78-100); Mean Corpuscular Hemoglobin 30.5 pg (27-31); Mean Corpuscular Hgb Conc 32.1 g/dl (32-36); Mean Platelet Volume 9.9 fl (8-12.5); Neutrophil # 5.3 K/mm3 (1.3-6.0); Neutrophil % 71.8 % (42-75.0); Platelet Count 160 K/mm3 (150-450); Red Blood Count 3.47 M/mm3 (4.2-5.4); Red Cell Distribution Width 13.7 % (11.5-14.0); White Blood Count 7.4 K/mm3 (4.0-10.5)
[2020-04-01 14:33] LABS: Prothrombin Time (Patient) 10.8 Seconds (9.1-10.7)
[2020-04-01 14:45] LABS: INR 1.09 INR (0.92-1.08); Partial Thrombolplastin Time 27.2 Seconds (24-32)
[2020-04-01 14:49] LABS: Albumin * 3.1 gm/dl (3.4-5.0); Anion Gap 8.6 mmol/L (6.8-13.8); BUN/Creatinine Ratio 28.4 (9.0-21.6); Bilirubin, Total 0.3 mg/dL (0.0-1.1); Ca. Corrected For Albumin 9.6 mg/dL (8.4-10.2); Calcium * 9.2 mg/dL (7.9-10.9); Carbon Dioxide 29.8 mmol/L (24-32.6); Potassium 3.4 mmol/L (3.4-4.6); Total Protein 6.1 gm/dL (6.2-8.2)
[2020-04-01 15:32] LABS: Urine Bilirubin Negative (NEGATIVE); Urine Blood 250 /ul (NEGATIVE); Urine Ketone Negative (NEGATIVE); Urine Nitrite Negative (NEGATIVE); Urine Protein Negative (NEGATIVE); Urine Specific Gravity 1.025 SP.GR. (1.005-1.010); Urine Urobilinogen Normal (NORMAL)
[2020-04-01 15:45] LABS: Urine Appearance Slightly Cloudy (CLEAR); Urine Bacteria 1+; Urine Color Yellow; Urine Mucus Moderate - 2+; Urine RBC 0-5 /hpf (0-5); Urine WBC 0-5 /hpf (0-5)
--- NOTE | 2020-04-01 17:52 | ERNOTE ---
GI Bleeding/Rectal Pain ER Date of Service: 04/01/20 Presenting Symptoms: rectal bleeding Time Seen by Provider: 04/01/20 14:00 Source: family, RN notes reviewed Exam Limitations: dementia Immunizations: IMMUNIZATION HX Immunizations Up to Date Yes History of Influenza Vaccine Yes Hx Pneumococcal Vaccination Yes Allergies/Adverse Reactions: Allergies alprazolam [From Xanax] Allergy (Unknown, Verified 01/31/20 18:29) gabapentin Allergy (Unknown, Verified 01/31/20 18:29) hydroxyzine Allergy (Unknown, Verified 01/31/20 18:29) losartan [Losartan] Allergy (Unknown, Verified 01/31/20 18:29) scopolamine Allergy (Unknown, Verified 01/31/20 18:29) sulindac [Sulindac] Allergy (Unknown, Verified 01/31/20 18:29) duloxetine HCl [From Cymbalta] Adverse Reaction (Intermediate, Verified 01/31/20 18:29) memory loss bupropion [From Zyban] Adverse Reaction (Unknown, Verified 01/31/20 18:29) lorazepam Adverse Reaction (Unknown, Verified 01/31/20 18:29) phenylephrine [From Murocoll-2] Adverse Reaction (Unknown, Verified 01/31/20 18:29) Home Medications: HOME MEDICATIONS carboxymethylcellulose sodium 0.5 % eye drops 1 drp OP QID PRN ml 04/10/18 [Last Taken Unknown] docusate sodium 100 mg capsule 100 mg PO DAILY #30 cap 06/26/18 [Last Taken Unknown] polyethylene glycol 3350 17 gram/dose oral powder 17 g PO DAILY PRN #255 g 06/26/18 [Last Taken Unknown] donepezil 10 mg tablet 10 mg PO HS #30 tab 06/30/18 [Last Taken Unknown] simvastatin 40 mg tablet 40 mg PO QPM #30 tab 10/01/18 [Last Taken Unknown] acetaminophen 325 mg tablet 650 mg PO Q6H PRN #60 tab 02/16/19 [Last Taken Unknown] haloperidol lactate 2 mg/mL oral concentrate 2 mg PO QPM ml 03/30/19 [Last Taken Unknown] levothyroxine 150 mcg tablet 150 mcg PO DAILY #30 tab 03/30/19 [Last Taken Unknown] traZODone HCL [Desyrel] 50 mg PO HS #30 tab 10/20/19 [Last Taken Unknown] sertraline 100 mg tablet 150 mg PO DAILY 90 Days #135 tab 12/28/19 [Last Taken Unknown] risperidone 1 mg tablet 1 mg PO Q12H PRN #60 tab 01/22/20 [Last Taken Unknown] Narrative: [facility] staff reported that patient had malodorous, black stools this am. No vomiting. Son is with her today, has not seen her recently due to visiting restrictions due to COVID pandemic. Patient has dementia, not a reliable historian, but denies abdominal pain. Son reports she has not had much appetite. No fever, chills, diaphoresis. Review of Systems - Narrative Narrative: Unobtainable due to dementia. 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 Dementia, unspecified, with behavioral disturbance Onset Date: 06/05/17 Hemorrhoids Hyperlipemia Hypertension Hypokalemia Hypothyroidism Memory loss Meniere's disease Osteopenia Basal cell carcinoma Dizziness Surgical History: Surgical History (Last Reviewed 04/01/20 @ 18:21 by Denisha Flynn MD) H/O foot surgery UNSPECIFIED X3 History of cataract extraction Hx of cholecystectomy Hx of hernia repair Hx of hysterectomy Hx of lumpectomy Hx of shoulder replacement RIGHT Family History: Family History (Last Reviewed 04/01/20 @ 18:21 by Denisha Flynn MD) Other Unknown family medical history Social History: (Last Reviewed 04/01/20 @ 18:21 by Denisha Flynn MD) Social History: Marital status: / lives independently: No Service: No Tobacco: Smoking Status: Former smoker Alcohol: alcohol intake: never Substance Use: substance use type: does not use Dietary Habits: caffeine: No Personal Safety: victim of physical abuse: No victim of emotional abuse: No Physical Exam - Physical Exam General Appearance: Present: no apparent distress, other - Not much verbal response. Eye Exam: Normal inspection: bilateral Ears, Nose, Throat: Present: normal ENT inspection Neck: Present: normal inspection, nontender Respiratory: Present: no respiratory distress, normal breath sounds, no accessory muscle use, chest nontender, lungs clear Cardiovascular/Chest: Present: regular rate, rhythm, no murmur, normal peripheral pulses Gastrointestinal/Abdominal: Present: nontender, nondistended Rectal Exam: Present: hemorrhoids, other - bright red blood. Extremity Exam: Present: non-tender, extremity edema - Edema R>L Neurological Exam: Present: other - Moves extremities symmetrically. Face is symmetric. Skin Exam: Present: normal color, warm/dry Progress - Results and Orders Patient's Lab Results:: I have reviewed the patient's lab results. - Vital Signs Patient's Vital Signs:: I have reviewed the patient's vital signs. Vital Signs: Vital Signs 04/01/20 13:36 Temperature 37.1 C Pulse Rate 63 Respiratory Rate 15 Blood Pressure 132/67 O2 Sat by Pulse Oximetry 97 - EKG EKG #1 EKG: NSR, nonspecific ST T wave changes EKG read: Interp. by me EKG Comments: Rate 57, nonspecific T wave abnormalities, no acute ST-T changes. No significant change from 10/19/19 EKG. - X-Ray X-Ray #1 X-Ray: chest Interpretation: Reviewed by me X-ray Comments: No infiltrate on CXR one view. - CT/Ultrasound CT/Ultrasound Narrative: CT of abdomen and pelvis with IV contrast, no oral contrast: Findings: Abdomen: The lung bases shows scarring and hyperinflation but otherwise are clear. The liver is normal without mass or pathologic ductal dilation. The gallbladder is surgically absent. The spleen, pancreas and adrenal glands are normal. Simple cyst in the right kidney. The kidneys demonstrate normal contrast-enhancement and excretion and are without solid mass, nephrolithiasis or hydronephrosis. The unopacified stomach and small bowel loops are grossly normal. No mesenteric or retroperitoneal lymphadenopathy. The appendix is not clearly identified however no inflammatory change in the right lower quadrant. There is extensive fecal retention seen throughout the colon. There is diffuse diverticulosis throughout the colon. No inflammatory changes suggest diverticulitis. Pelvis: The bladder is well distended and normal. Uterus and ovaries are surgically absent. No free pelvic fluid. No inguinal or pelvic lymphadenopathy. There is diffuse atherosclerosis of the abdominal aorta and major branches. No aneurysmal dilation. There is extensive degenerative change of the spine, SI joints and bilateral hips. IMPRESSION: 1. NO ACUTE INTRA-ABDOMINAL OR PELVIC PROCESS. 2. POSTSURGICAL CHANGES DESCRIBED ABOVE. 3. DIVERTICULOSIS WITHOUT EVIDENCE FOR DIVERTICULITIS. 4. ADDITIONAL COMMENTS AND DETAILS ABOVE. Electronically signed by Tl Ng D.O.. Tl Ng DO Dict: 04/01/20 1738 Typed: 04/01/20 1738/ 04/01/20 1742 - Progress/Reassessment Chief Complaint: GI Bleed Progress Note-Subjective: 04/01/20 18:23 Vitals have remained stable in ER. Will be admitted for GI bleed. 04/01/20 18:31 Departure Clinical Impression: Rectal bleed, Alzheimer's dementia with behavioral disturbance - Departure Disposition: Short Term Hospital Inpatient Condition: Fair Referrals: Graham Jackson DO [Primary Care Provider] -
[2020-04-01] MEDS ORDERED: hydrALAZINE HCL 10 MG TABLET PO ONE (22:15)
[2020-04-01 22:44] LABS: Hematocrit 34.4 % (37.0-47.0); Mean Corpuscular Hemoglobin 30.4 pg (27-31); Mean Platelet Volume 10.4 fl (8-12.5); Platelet Count 137 K/mm3 (150-450); Red Blood Count 3.62 M/mm3 (4.2-5.4); Red Cell Distribution Width 13.4 % (11.5-14.0); White Blood Count 8.2 K/mm3 (4.0-10.5)
[2020-04-01] MEDS ORDERED: DONEPEZIL HCL 10 MG TABLET PO SCH (23:00)
[2020-04-01] MEDS ORDERED: SERTRALINE HCL 100 MG TABLET PO SCH (23:00)
[2020-04-01] MEDS ORDERED: traZODone HCL 50 MG TABLET PO SCH (23:00)
[2020-04-01] MEDS ORDERED: HALOPERIDOL LACTATE 2 MG/ML ORAL.CONC PO SCH (23:00)
[2020-04-01] MEDS ORDERED: PANTOPRAZOLE SODIUM 80 MG in NORMAL SALINE 100 ML IV ONE (23:57)
[2020-04-02] MEDS ORDERED: ACETAMINOPHEN 325 MG TABLET PO PRN (00:53)
[2020-04-02] MEDS ORDERED: POLYVINYL ALCOHOL 150 DROP BTL EACHEYE PRN (00:53)
[2020-04-02] MEDS ORDERED: risperiDONE 1 MG TABLET PO PRN (00:53)
[2020-04-02] MEDS ORDERED: POLYETHYLENE GLYCOL 3350 17 GM PACKET PO PRN (00:53)
[2020-04-02] MEDS ORDERED: POLYETHYLENE GLYCOL 3350 119 GM BTL PO PRN (00:53)
[2020-04-02 06:37] LABS: Hematocrit 34.2 % (37.0-47.0); Mean Cell Volume 93.7 fl (78-100); Mean Corpuscular Hemoglobin 30.1 pg (27-31); Mean Corpuscular Hgb Conc 32.2 g/dl (32-36); Mean Platelet Volume 10.1 fl (8-12.5); Neutrophil # 4.6 K/mm3 (1.3-6.0); Neutrophil % 67.6 % (42-75.0); Platelet Count 152 K/mm3 (150-450); Red Blood Count 3.65 M/mm3 (4.2-5.4); Red Cell Distribution Width 13.3 % (11.5-14.0); White Blood Count 6.8 K/mm3 (4.0-10.5)
[2020-04-02 06:47] LABS: Albumin * 3.2 gm/dl (3.4-5.0); Anion Gap 10.1 mmol/L (6.8-13.8); BUN/Creatinine Ratio 26.7 (9.0-21.6); Bilirubin, Total 0.5 mg/dL (0.0-1.1); Ca. Corrected For Albumin 9.7 mg/dL (8.4-10.2); Calcium * 9.4 mg/dL (7.9-10.9); Carbon Dioxide 30.3 mmol/L (24-32.6); Potassium 3.4 mmol/L (3.4-4.6); Total Protein 6.2 gm/dL (6.2-8.2)
[2020-04-02] MEDS ORDERED: SERTRALINE HCL 100 MG TABLET PO SCH (09:00)
[2020-04-02] MEDS ORDERED: DOCUSATE SODIUM 100 MG CAPSULE PO SCH (09:00)
[2020-04-02] MEDS ORDERED: LEVOTHYROXINE SODIUM 150 MCG TABLET PO SCH (09:00)
--- NOTE | 2020-04-02 09:54 | HPDIS ---
Chief Complaint - Chief Complaint Date of Service: 04/02/20 Time of Service: 00:05 Chief Complaint: Blood in stool History of Present Illness: Sidney is an 79 yo female, a resident of [facility]. She has a history of dementia. On 04/01/20 she was had a black stool at the care center. She complained of some mild abdominal pain, but was otherwise assymptomatic. She had no change in weakness, fatigue, nausea, or vomiting. She had another bloody stool and was sent to the [facility] ER. In the ER stool was positive for blood. Hemoglobin was 10.6. There were no other significant abnormalities. ER requested she be admitted for observation and monitoring of hemoglobin for her GI Bleed. 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 Dementia, unspecified, with behavioral disturbance Onset Date: 06/05/17 Hemorrhoids Hyperlipemia Hypertension Hypokalemia Hypothyroidism Memory loss Meniere's disease Osteopenia Basal cell carcinoma Dizziness Surgical History: Surgical History (Last Reviewed 04/01/20 @ 21:11 by Edison Fry RN) H/O foot surgery UNSPECIFIED X3 History of cataract extraction Hx of cholecystectomy Hx of hernia repair Hx of hysterectomy Hx of lumpectomy Hx of shoulder replacement RIGHT Family History: Family History (Last Reviewed 04/01/20 @ 21:11 by Edison Fry RN) Other Unknown family medical history Social History: (Last Reviewed 04/01/20 @ 21:11 by Edison Fry RN) Social History: Marital status: / lives independently: No Service: No Tobacco: Smoking Status: Former smoker Alcohol: alcohol intake: never Substance Use: substance use type: does not use Dietary Habits: caffeine: No Personal Safety: victim of physical abuse: No victim of emotional abuse: No Review Of Systems (GEN) - Review of Systems Generalized/Overall Review: Absent: Weakness, Chills, Fever EENTM: Present: No Symptoms Reported Respiratory: Absent: Cough, Shortness of Breath Cardiac: Absent: Chest Pain, Edema Abdominal: Present: Abdominal Pain, Melena. Absent: Nausea, Vomiting, Hematemesis Genitourinary: Present: No Symptoms Reported Musculoskeletal: Present: No Symptoms Reported Neurological: Present: Headache, Other - tearful Skin: Absent: Lesions, Lumps Endocrine: Absent: Excessive Sweating, Increased Thirst Immunizations: IMMUNIZATION HX Immunizations Up to Date Yes History of Influenza Vaccine Yes Hx Pneumococcal Vaccination Yes Allergies/Adverse Reactions: Allergies Allergy/AdvReac Type Severity Reaction Status Date / Time alprazolam [From Xanax] Allergy Unknown Verified 04/01/20 21:11 gabapentin Allergy Unknown Verified 04/01/20 21:11 hydroxyzine Allergy Unknown Verified 04/01/20 21:11 losartan [Losartan] Allergy Unknown Verified 04/01/20 21:11 scopolamine Allergy Unknown Verified 04/01/20 21:11 sulindac [Sulindac] Allergy Unknown Verified 04/01/20 21:11 duloxetine HCl AdvReac Intermediate memory loss Verified 04/01/20 21:11 [From Cymbalta] bupropion [From Zyban] AdvReac Unknown Verified 04/01/20 21:11 lorazepam AdvReac Unknown Verified 04/01/20 21:11 phenylephrine AdvReac Unknown Verified 04/01/20 21:11 [From Murocoll-2] Home Medications: HOME MEDICATIONS carboxymethylcellulose sodium 0.5 % eye drops 1 drp OP QID PRN ml 04/10/18 [Last Taken Unknown] docusate sodium 100 mg capsule 100 mg PO DAILY #30 cap 06/26/18 [Last Taken Unknown] polyethylene glycol 3350 17 gram/dose oral powder 17 g PO DAILY PRN #255 g 06/26/18 [Last Taken Unknown] donepezil 10 mg tablet 10 mg PO HS #30 tab 06/30/18 [Last Taken Unknown] simvastatin 40 mg tablet 40 mg PO QPM #30 tab 10/01/18 [Last Taken Unknown] acetaminophen 325 mg tablet 650 mg PO Q6H PRN #60 tab 02/16/19 [Last Taken Unknown] haloperidol lactate 2 mg/mL oral concentrate 2 mg PO QPM ml 03/30/19 [Last Take n Unknown] levothyroxine 150 mcg tablet 150 mcg PO DAILY #30 tab 03/30/19 [Last Taken Unknown] traZODone HCL [Desyrel] 50 mg PO HS #30 tab 10/20/19 [Last Taken Unknown] sertraline 100 mg tablet 150 mg PO DAILY 90 Days #135 tab 12/28/19 [Last Taken Unknown] risperidone 1 mg tablet 1 mg PO Q12H PRN #60 tab 01/22/20 [Last Taken Unknown] Pantoprazole Sodium [Protonix] 40 mg PO DAILY #30 tablet. 04/02/20 [Last Taken Unknown] Exam - Exam Vital Signs: Vital Signs - Last Taken Temp 36.7 C 04/02/20 07:06 Pulse 60 04/02/20 07:06 Resp 18 04/02/20 07:06 BP 162/71 H 04/02/20 07:06 Pulse Ox 97 04/02/20 07:06 Constitutional: Present: Alert, No distress. Absent: Oriented x3 Eye Exam: bilateral eye: normal inspection Respiratory: Present: lungs clear, normal breath sounds Cardiovascular/Chest: Present: regular rate, rhythm, no edema Abdomen: Present: Normal bowel sounds, soft, nontender, nondistended Skin Exam: Present: normal color, warm/dry, no cyanosis Lymphatic: Present: no adenopathy Appearance: Present: other - tearful Diagnostic Studies: Abnormal Lab Results 04/01/20 04/01/20 04/01/20 Range/Units 14:15 14:15 14:15 RBC 3.47 L (4.2-5.4) M/mm3 Hgb 10.6 L (12.5-16.0) gm/dL Hct 33.0 L (37.0-47.0) % Plt Count (150-450) K/mm3 Lymphocytes % 19.9 L (20-51) % Lymphocytes # 1.48 L (1.5-3.5) k/mm3 PT 10.8 H (9.1-10.7) Seconds INR (Anticoag Therapy) 1.09 H (0.92-1.08) INR Sodium (132-142) mmol/L Plasma Sodium 143 H (130-142) mmol/L Chloride 107 H (97-106) mmol/L BUN 25 H (3-23) mg/dL BUN/Creatinine Ratio 28.4 H (9.0-21.6) Random Glucose 169 H (70-110) mg/dL ALT 14 L (19-67) U/L Total Protein 6.1 L (6.2-8.2) gm/dL Albumin 3.1 L (3.4-5.0) gm/dl Urine Blood (NEGATIVE) /ul Calcium Oxalate Crystal (NONE) /hpf Urine Bacteria (NONE) Urine Mucus (NONE) Stool Occult Blood 04/01/20 04/01/20 04/01/20 Range/Units 15:00 15:00 22:38 RBC 3.62 L (4.2-5.4) M/mm3 Hgb 11.0 L (12.5-16.0) gm/dL Hct 34.4 L (37.0-47.0) % Plt Count 137 L (150-450) K/mm3 Lymphocytes % (20-51) % Lymphocytes # (1.5-3.5) k/mm3 PT (9.1-10.7) Seconds INR (Anticoag Therapy) (0.92-1.08) INR Sodium (132-142) mmol/L Plasma Sodium (130-142) mmol/L Chloride (97-106) mmol/L BUN (3-23) mg/dL BUN/Creatinine Ratio (9.0-21.6) Random Glucose (70-110) mg/dL ALT (19-67) U/L Total Protein (6.2-8.2) gm/dL Albumin (3.4-5.0) gm/dl Urine Blood 250 H (NEGATIVE) /ul Calcium Oxalate Crystal Few - 1+ H (NONE) /hpf Urine Bacteria 1+ H (NONE) Urine Mucus Moderate - 2+ H (NONE) Stool Occult Blood Positive H 04/02/20 04/02/20 Range/Units 06:19 06:19 RBC 3.65 L (4.2-5.4) M/mm3 Hgb 11.0 L (12.5-16.0) gm/dL Hct 34.2 L (37.0-47.0) % Plt Count (150-450) K/mm3 Lymphocytes % (20-51) % Lymphocytes # (1.5-3.5) k/mm3 PT (9.1-10.7) Seconds INR (Anticoag Therapy) (0.92-1.08) INR Sodium 143 H (132-142) mmol/L Plasma Sodium 143 H (130-142) mmol/L Chloride (97-106) mmol/L BUN (3-23) mg/dL BUN/Creatinine Ratio 26.7 H (9.0-21.6) Random Glucose (70-110) mg/dL ALT 15 L (19-67) U/L Total Protein (6.2-8.2) gm/dL Albumin 3.2 L (3.4-5.0) gm/dl Urine Blood (NEGATIVE) /ul Calcium Oxalate Crystal (NONE) /hpf Urine Bacteria (NONE) Urine Mucus (NONE) Stool Occult Blood Laboratory Results WBC 6.8 K/mm3 (4.0-10.5) 04/02/20 06:19 RBC 3.65 M/mm3 (4.2-5.4) L 04/02/20 06:19 Hgb 11.0 gm/dL (12.5-16.0) L 04/02/20 06:19 Hct 34.2 % (37.0-47.0) L 04/02/20 06:19 MCV 93.7 fl (78-100) 04/02/20 06:19 MCH 30.1 pg (27-31) 04/02/20 06:19 MCHC 32.2 g/dl (32-36) 04/02/20 06:19 RDW 13.3 % (11.5-14.0) 04/02/20 06:19 Plt Count 152 K/mm3 (150-450) 04/02/20 06:19 MPV 10.1 fl (8-12.5) 04/02/20 06:19 Immature Gran % (Auto) 0.30 % (0.001-0.429) 04/02/20 06:19 Immature Gran # (Auto) 0.02 K/mm3 (0.000-0.0310) 04/02/20 06:19 Neutrophils % 67.6 % (42-75.0) 04/02/20 06:19 Lymphocytes % 22.2 % (20-51) 04/02/20 06:19 Monocytes % 7.1 % (0.0-9) 04/02/20 06:19 Eosinophils % 2.4 % (0.0-3.0) 04/02/20 06:19 Basophils % 0.4 % (0.0-1.0) 04/02/20 06:19 Nucleated RBC % 0.0 k/mm3 (0-1) 04/02/20 06:19 Neutrophils # 4.6 K/mm3 (1.3-6.0) 04/02/20 06:19 Lymphocytes # 1.51 k/mm3 (1.5-3.5) 04/02/20 06:19 Monocytes # 0.5 k/mm3 (0.0-1.0) 04/02/20 06:19 Eosinophils # 0.2 k/mm3 (0.0-0.7) 04/02/20 06:19 Absolute Basophils 0.0 k/mm3 (0.0-0.1) 04/02/20 06:19 PT 10.8 Seconds (9.1-10.7) H 04/01/20 14:15 INR (Anticoag Therapy) 1.09 INR (0.92-1.08) H 04/01/20 14:15 PTT ([place]) 27.2 Seconds (24-32) 04/01/20 14:15 Sodium 143 mmol/L (132-142) H 04/02/20 06:19 Plasma Sodium 143 mmol/L (130-142) H 04/02/20 06:19 Potassium 3.4 mmol/L (3.4-4.6) 04/02/20 06:19 Chloride 106 mmol/L (97-106) 04/02/20 06:19 Carbon Dioxide 30.3 mmol/L (24-32.6) 04/02/20 06:19 Anion Gap 10.1 mmol/L (6.8-13.8) 04/02/20 06:19 BUN 20 mg/dL (3-23) 04/02/20 06:19 Creatinine 0.75 mg/dL (0.4-1.4) 04/02/20 06:19 Est GFR (Non-Af Amer) 79 mL/min (60-130) 04/02/20 06:19 BUN/Creatinine Ratio 26.7 (9.0-21.6) H 04/02/20 06:19 Random Glucose 84 mg/dL (70-110) D 04/02/20 06:19 Calcium 9.4 mg/dL (7.9-10.9) 04/02/20 06:19 Calcium Adj for Albumin 9.7 mg/dL (8.4-10.2) 04/02/20 06:19 Total Bilirubin 0.5 mg/dL (0.0-1.1) 04/02/20 06:19 AST 14 U/L (0-48) 04/02/20 06:19 ALT 15 U/L (19-67) L 04/02/20 06:19 Alkaline Phosphatase 94 U/L (50-170) 04/02/20 06:19 Total Protein 6.2 gm/dL (6.2-8.2) 04/02/20 06:19 Albumin 3.2 gm/dl (3.4-5.0) L 04/02/20 06:19 Urine Color Yellow 04/01/20 15:00 Urine Appearance Slightly cloudy (CLEAR) 04/01/20 15:00 Urine pH 6.0 pH (5.0-7.0) 04/01/20 15:00 Ur Specific [place] 1.025 SP.GR. (1.005-1.010) 04/01/20 15:00 Urine Protein Negative mg/dL (NEGATIVE) 04/01/20 15:00 Urine Glucose (UA) Negative mg/dL (NEGATIVE) 04/01/20 15:00 Urine Ketones Negative mg/dL (NEGATIVE) 04/01/20 15:00 Urine Blood 250 /ul (NEGATIVE) H 04/01/20 15:00 Urine Nitrate Negative (NEGATIVE) 04/01/20 15:00 Urine Bilirubin Negative mg/dl (NEGATIVE) 04/01/20 15:00 Urine Urobilinogen Normal EU/dl (NORMAL) 04/01/20 15:00 Ur Leukocyte Esterase Negative /ul (NEGATIVE) 04/01/20 15:00 Urine RBC 0-5 /hpf (0-5) 04/01/20 15:00 Urine WBC 0-5 /hpf (0-5) 04/01/20 15:00 Ur Epithelial Cells 0-5 /hpf (0-5) 04/01/20 15:00 Calcium Oxalate Crystal Few - 1+ /hpf (NONE) H 04/01/20 15:00 Urine Bacteria 1+ (NONE) H 04/01/20 15:00 Urine Mucus Moderate - 2+ (NONE) H 04/01/20 15:00 Urine Culture Comments No culture indicated 04/01/20 15:00 Stool Occult Blood Positive H 04/01/20 15:00 SARS-CoV-2 (PCR) Not detected (ND) 04/01/20 19:11 Blood Type A Negative 04/01/20 14:15 Antibody Screen Negative 04/01/20 14:15 Assessment/Plan - Narrative Narrative: Sidney is an 79 yo female with acute GI Bleed based on melanotic stools and positive guiac of stool. She was started on IV protonix and aspirin was held. Hemoglobin was monitored and trended up from 10.6 to 11. Hemoglobin will be rechecked in the morning and she will be monitored in observation over night. Anticipate discharge tomorrow unless there is significant evidence of bleeding. - Assessment/Plan (1) GI bleed Problem: Acute Qualifiers: GI bleed type/associated pathology: unspecified gastrointestinal hemorrhage type Qualified Code(s): K92.2 - Gastrointestinal hemorrhage, unspecified (1) GI bleed Problem: Acute Qualifiers: GI bleed type/associated pathology: unspecified gastrointestinal hemorrhage type Qualified Code(s): K92.2 - Gastrointestinal hemorrhage, unspecified Date of Discharge:: 04/02/20 Hospital Course: Sidney was admitted to observation for GI bleed. I suspect that it was upper due to melena and likely secondary to aspirin use. Her hemoglobin was 10.6 on admission and trended up to 11.0. It was rechecked in the morning and remained 11.0. She has not had any bloody stools overnight. She will be discharged to [facility] today. She will remain off aspirin and will take protonix for the next month. Procedures Performed: none Results and Findings: Lab Pending Results 04/01/20 14:15: WBC 7.4, RBC 3.47 L, Hgb 10.6 L, Hct 33.0 L, MCV 95.1, MCH 30.5, MCHC 32.1, RDW 13.7, Plt Count 160, MPV 9.9, Immature Gran % (Auto) 0.40, Immature Gran # (Auto) 0.03, Neutrophils % 71.8, Lymphocytes % 19.9 L, Monocytes % 6.0, Eosinophils % 1.6, Basophils % 0.3, Nucleated RBC % 0.0, Neutrophils # 5.3, Lymphocytes # 1.48 L, Monocytes # 0.5, Eosinophils # 0.1, Absolute Ba sophils 0.0 04/01/20 14:15: PT 10.8 H, INR (Anticoag Therapy) 1.09 H, PTT ([place]) 27.2 04/01/20 14:15: Sodium 142, Plasma Sodium 143 H, Potassium 3.4, Chloride 107 H, Carbon Dioxide 29.8, Anion Gap 8.6, BUN 25 H, Creatinine 0.88, Est GFR (Non-Af Amer) 66, BUN/Creatinine Ratio 28.4 H, Random Glucose 169 H, Calcium 9.2, Calcium Adj for Albumin 9.6, Total Bilirubin 0.3, AST 14, ALT 14 L, Alkaline Phosphatase 96, Total Protein 6.1 L, Albumin 3.1 L 04/01/20 14:15: Blood Type A Negative, Antibody Screen Negative 04/01/20 15:00: Urine Color Yellow, Urine Appearance Slightly cloudy, Urine pH 6.0, Ur Specific [place] 1.025, Urine Protein Negative, Urine Glucose (UA) Negative, Urine Ketones Negative, Urine Blood 250 H, Urine Nitrate Negative, Urine Bilirubin Negative, Urine Urobilinogen Normal, Ur Leukocyte Esterase Negative, Urine RBC 0-5, Urine WBC 0-5, Ur Epithelial Cells 0-5, Calcium Oxalate Crystal Few - 1+ H, Urine Bacteria 1+ H, Urine Mucus Moderate - 2+ H, Urine Culture Comments No culture indicated 04/01/20 15:00: Stool Occult Blood Positive H 04/01/20 19:11: SARS-CoV-2 (PCR) Not detected 04/01/20 22:38: WBC 8.2, RBC 3.62 L, Hgb 11.0 L, Hct 34.4 L, MCV 95.0, MCH 30.4, MCHC 32.0, RDW 13.4, Plt Count 137 L, MPV 10.4 04/02/20 06:19: WBC 6.8, RBC 3.65 L, Hgb 11.0 L, Hct 34.2 L, MCV 93.7, MCH 30.1, MCHC 32.2, RDW 13.3, Plt Count 152, MPV 10.1, Immature Gran % (Auto) 0.30, Immature Gran # (Auto) 0.02, Neutrophils % 67.6, Lymphocytes % 22.2, Monocytes % 7.1, Eosinophils % 2.4, Basophils % 0.4, Nucleated RBC % 0.0, Neutrophils # 4.6, Lymphocytes # 1.51, Monocytes # 0.5, Eosinophils # 0.2, Absolute Basophils 0.0 04/02/20 06:19: Sodium 143 H, Plasma Sodium 143 H, Potassium 3.4, Chloride 106, Carbon Dioxide 30.3, Anion Gap 10.1, BUN 20, Creatinine 0.75, Est GFR (Non-Af Amer) 79, BUN/Creatinine Ratio 26.7 H, Random Glucose 84 D, Calcium 9.4, Calcium Adj for Albumin 9.7, Total Bilirubin 0.5, AST 14, ALT 15 L, Alkaline Phosphatase 94, Total Protein 6.2, Albumin 3.2 L Discharge Location: [facility] Disposition: Home self-care Condition: Fair Discharge Activity: Activity as tolerated Discharge Diet: General/regular food Referrals: Graham Jackson DO [Primary Care Provider] - One Week (Telehealth) Problem Oriented Discharge Instructions to Patient/Family: Gastrointestinal Bleeding, [id number] Prescriptions (Any new or edited meds): Pantoprazole Sodium [Protonix] 40 mg PO DAILY #30 tablet.dr Transmission Status: Pending to [facility] Complete Home Medications List: Complete Home Medication List: carboxymethylcellulose sodium 0.5 % eye drops 1 drp OP QID PRN ml 04/10/18 docusate sodium 100 mg capsule 100 mg PO DAILY #30 cap 06/26/18 polyethylene glycol 3350 17 gram/dose oral powder 17 g PO DAILY PRN #255 g 06/26/18 donepezil 10 mg tablet 10 mg PO HS #30 tab 06/30/18 simvastatin 40 mg tablet 40 mg PO QPM #30 tab 10/01/18 acetaminophen 325 mg tablet 650 mg PO Q6H PRN #60 tab 02/16/19 haloperidol lactate 2 mg/mL oral concentrate 2 mg PO QPM ml 03/30/19 levothyroxine 150 mcg tablet 150 mcg PO DAILY #30 tab 03/30/19 traZODone HCL [Desyrel] 50 mg PO HS #30 tab 10/20/19 sertraline 100 mg tablet 150 mg PO DAILY 90 Days #135 tab 12/28/19 risperidone 1 mg tablet 1 mg PO Q12H PRN #60 tab 01/22/20 Pantoprazole Sodium [Protonix] 40 mg PO DAILY #30 tablet. 04/02/20 Forms: Patient Portal Registration
[2020-04-02 13:06] VITALS: BP 142/82
[2020-04-02] MEDS ORDERED: SIMVASTATIN 40 MG TABLET PO SCH (17:00)
[2020-04-02] MEDS ORDERED: SERTRALINE HCL 50 MG TABLET PO SCH (21:00)
== END 2020-04-02 13:40 | disposition home or self-care (01) ==
LOC: ER 13:28 → MS 13:28
PROVIDERS: ADMIT Family Medicine; ATTEND Family Medicine
CPT/HCPCS: 36415; 71010; 71045; 74177; 80053; 81001; 82272; 85025; 85027; 85610; 85730; 86850; 87081; 93005; 96365; 99284; 99285; G0378; Q9967

== ENCOUNTER 2021-02-07 07:08 | Observation (INO) ==
--- NOTE | 2021-02-07 07:39 | ERNOTE ---
<Trung Soliman - Last Filed: 02/07/21 08:25> GI Bleeding/Rectal Pain ER Presenting Symptoms: rectal bleeding Time Seen by Provider: 02/07/21 07:31 Source: patient, EMS, RN notes reviewed Exam Limitations: no limitations Immunizations: IMMUNIZATION HX Immunizations Up to Date Yes History of Influenza Vaccine Yes Hx Pneumococcal Vaccination No Allergies/Adverse Reactions: Allergies alprazolam [From Xanax] Allergy (Unknown, Verified 02/07/21 07:13) gabapentin Allergy (Unknown, Verified 02/07/21 07:13) hydroxyzine Allergy (Unknown, Verified 02/07/21 07:13) losartan [Losartan] Allergy (Unknown, Verified 02/07/21 07:13) scopolamine Allergy (Unknown, Verified 02/07/21 07:13) sulindac [Sulindac] Allergy (Unknown, Verified 02/07/21 07:13) duloxetine HCl [From Cymbalta] Adverse Reaction (Intermediate, Verified 02/07/21 07:13) memory loss bupropion [From Zyban] Adverse Reaction (Unknown, Verified 02/07/21 07:13) lorazepam Adverse Reaction (Unknown, Verified 02/07/21 07:13) phenylephrine [From Murocoll-2] Adverse Reaction (Unknown, Verified 02/07/21 07:13) Home Medications: HOME MEDICATIONS carboxymethylcellulose sodium 0.5 % eye drops 1 drp OP QID PRN ml 04/10/18 [Last Taken Unknown] docusate sodium 100 mg capsule 100 mg PO DAILY #30 cap 06/26/18 [Last Taken Unknown] acetaminophen 325 mg tablet 650 mg PO Q6H PRN #60 tab 02/16/19 [Last Taken Unknown] haloperidol 2 mg tablet 2 mg PO QPM #30 tab 07/14/20 [Last Taken Unknown] donepezil 10 mg tablet 10 mg PO QPM #30 tab 01/05/21 [Last Taken Unknown] levothyroxine 150 mcg tablet 150 mcg PO DAILY #30 tab 01/05/21 [Last Taken Unknown] pantoprazole 40 mg tablet,delayed release 40 mg PO DAILY #30 tablet.dr 01/05/21 [Last Taken Unknown] sertraline 100 mg tablet 150 mg PO DAILY #45 tab 01/05/21 [Last Taken Unknown] simvastatin 40 mg tablet 40 mg PO QPM #30 tab 01/05/21 [Last Taken Unknown] trazodone 50 mg tablet 50 mg PO HS #30 tab 01/05/21 [Last Taken Unknown] quetiapine 50 mg tablet 50 mg PO HS #30 tab 01/31/21 [Last Taken Unknown] Narrative: Saturday patient had some diarrhea and by Saturday she was having a little bit of blood in her stools off and on. Last night (Saturday) she began to have consistent blood in her stools throughout the night and patient was brought to the ER per EMS this morning. Patient denies any other symptoms. Timing: getting worse Quality/Severity: Present: moderate Nausea/Vomiting: Present: blood Abdominal Pain: Present: diffuse Rectal Bleeding: Present: blood mixed with stool Review of Systems - Narrative Narrative: ROS is negative according to the patient which is probably not reliable. Medical History (Last Reviewed 02/07/21 @ 07:36 by Trung Soliman DO) Adjustment disorder with anxious mood (Chronic) Onset Date: 06/05/17 Agitation (Chronic) Arthritis (Chronic) Basal cell carcinoma (Resolved) Blurry vision (Chronic) CVA (cerebral vascular accident) (Chronic) Degeneration of cervical intervertebral disc (Chronic) C-6 & C-7 Dementia, unspecified, with behavioral disturbance (Chronic) Onset Date: 06/05/17 Dizziness (Resolved) Hemorrhoids (Chronic) Hyperlipemia (Chronic) Hypertension (Chronic) Hypokalemia (Chronic) Hypothyroidism (Chronic) Memory loss (Chronic) Meniere's disease (Chronic) Osteopenia (Chronic) Weakness (Acute) Gait disturbance (Acute) Alzheimer's dementia with behavioral disturbance (Chronic) Facial droop (Acute) Rectal bleed (Acute) GI bleed (Acute) Bilateral lower extremity edema (Acute) Bilateral bunions (Acute) Hammer toes, bilateral (Acute) Toe pain, bilateral (Acute) Onychomycosis (Acute) Vertigo (Acute) Altered mental status, unspecified (Acute) Pneumonia (Acute) Hypokalemia (Acute) Agitation (Acute) Surgical History: Surgical History (Last Reviewed 02/07/21 @ 07:36 by Trung Soliman DO) History of cataract extraction (Resolved) Hx of cholecystectomy (Resolved) H/O foot surgery (Resolved) UNSPECIFIED X3 Hx of hernia repair (Resolved) Hx of hysterectomy (Resolved) Hx of lumpectomy (Resolved) Hx of shoulder replacement (Resolved) RIGHT Family History: Family History (Last Reviewed 02/07/21 @ 07:36 by Trung Soliman DO) Other Unknown family medical history Social History: (Last Reviewed 02/07/21 @ 07:36 by Trung Soliman DO) Social History: Marital status: / lives independently: No Service: No Tobacco: Smoking Status: Former smoker Alcohol: alcohol intake: never Substance Use: substance use type: does not use Dietary Habits: caffeine: No Personal Safety: victim of physical abuse: No victim of emotional abuse: No Physical Exam - Physical Exam General Appearance: Present: wd/wn, alert, no apparent distress Head Exam: Present: normal inspection, no evidence of injury Ears, Nose, Throat: Present: normal ENT inspection Neck: Present: normal inspection, nontender Respiratory: Present: no respiratory distress, normal breath sounds, lungs clear Cardiovascular/Chest: Present: regular rate, rhythm, no murmur Gastrointestinal/Abdominal: Present: normal bowel sounds, nondistended, soft, tenderness - diffuse. Absent: guarding, rebound Back Exam: Present: no CVA tenderness, no vertebral tenderness Extremity Exam: Present: normal inspection, normal range of motion, no edema Neurological Exam: Present: alert, no motor/sensory deficits Skin Exam: Present: normal color, warm/dry Lymphatic Exam: Present: no adenopathy Progress - Results and Orders Patient's Lab Results:: I have reviewed the patient's lab results. - Vital Signs Patient's Vital Signs:: I have reviewed the patient's vital signs. Vital Signs: Vital Signs 02/07/21 07:09 Temperature 36.0 C Pulse Rate 65 Respiratory Rate 16 Blood Pressure 158/76 H O2 Sat by Pulse Oximetry 97 - Progress/Reassessment Chief Complaint: GI Bleed - Transfer of Care Physician Sign Out: Trung Soliman Receiving Physician: Justen Ventura Pending Results: Labs, X-ray results Expected Disposition: Discharge Departure Clinical Impression: Rectal bleed, GI bleed, Dementia, unspecified, with behavioral disturbance, Anemia - Departure Disposition: Still a patient Condition: Fair Referrals: Graham Jacskon DO [Primary Care Provider] - <Justen Ventura - Last Filed: 02/07/21 09:29> GI Bleeding/Rectal Pain ER Immunizations: IMMUNIZATION HX Immunizations Up to Date Yes History of Influenza Vaccine Yes Hx Pneumococcal Vaccination No Medical History (Last Reviewed 02/07/21 @ 07:36 by Trung Soliman DO) Adjustment disorder with anxious mood (Chronic) Onset Date: 06/05/17 Agitation (Chronic) Arthritis (Chronic) Basal cell carcinoma (Resolved) Blurry vision (Chronic) CVA (cerebral vascular accident) (Chronic) Degeneration of cervical intervertebral disc (Chronic) C-6 & C-7 Dementia, unspecified, with behavioral disturbance (Chronic) Onset Date: 06/05/17 Dizziness (Resolved) Hemorrhoids (Chronic) Hyperlipemia (Chronic) Hypertension (Chronic) Hypokalemia (Chronic) Hypothyroidism (Chronic) Memory loss (Chronic) Meniere's disease (Chronic) Osteopenia (Chronic) Weakness (Acute) Gait disturbance (Acute) Alzheimer's dementia with behavioral disturbance (Chronic) Facial droop (Acute) Rectal bleed (Acute) GI bleed (Acute) Bilateral lower extremity edema (Acute) Bilateral bunions (Acute) Hammer toes, bilateral (Acute) Toe pain, bilateral (Acute) Onychomycosis (Acute) Vertigo (Acute) Altered mental status, unspecified (Acute) Pneumonia (Acute) Hypokalemia (Acute) Agitation (Acute) Surgical History: Surgical History (Last Reviewed 02/07/21 @ 07:36 by Trung Soliman DO) History of cataract extraction (Resolved) Hx of cholecystectomy (Resolved) H/O foot surgery (Resolved) UNSPECIFIED X3 Hx of hernia repair (Resolved) Hx of hysterectomy (Resolved) Hx of lumpectomy (Resolved) Hx of shoulder replacement (Resolved) RIGHT Family History: Family History (Last Reviewed 02/07/21 @ 07:36 by Trung Soliman DO) Other Unknown family medical history Social History: (Last Reviewed 02/07/21 @ 07:36 by Trung Soliman DO) Social History: Marital status: / lives independently: No Service: No Tobacco: Smoking Status: Former smoker Alcohol: alcohol intake: never Substance Use: substance use type: does not use Dietary Habits: caffeine: No Personal Safety: victim of physical abuse: No victim of emotional abuse: No Progress - Results and Orders Patient's Lab Results:: I have reviewed the patient's lab results. - Vital Signs Patient's Vital Signs:: I have reviewed the patient's vital signs. Vital Signs: Vital Signs 02/07/21 07:09 02/07/21 08:08 02/07/21 08:56 Temperature 36.0 C Pulse Rate 65 60 57 L Respiratory Rate 16 Blood Pressure 158/76 H 136/60 138/66 O2 Sat by Pulse Oximetry 97 98 97 - Progress/Reassessment Progress Note-Subjective: 02/07/21 09:25 Patient checked out to me at am shift change. Rectal bleeding with clots. She has dementia so she cannot provide history. Positive guaiac here with gross blood by report. Hemoglobin low but not at transfusable level, she is currently stable but she will need serial H&H and observation. She cannot be observed as outpatient as she has dementia. D/W Dr Jackson who will admit obs. Please see Dr Soliman's note for full H&P.
[2021-02-07 08:39] LABS: Hematocrit 38.2 % (37.0-47.0); Hemoglobin 12.1 gm/dL (12.5-16.0); Mean Cell Volume 92.9 fl (78-100); Mean Corpuscular Hemoglobin 29.4 pg (27-31); Mean Corpuscular Hgb Conc 31.7 g/dl (32-36); Mean Platelet Volume 9.6 fl (8-12.5); Neutrophil # 4.7 K/mm3 (1.3-6.0); Neutrophil % 73.3 % (42-75.0); Platelet Count 133 K/mm3 (150-450); Red Blood Count 4.11 M/mm3 (4.2-5.4); Red Cell Distribution Width 14.5 % (11.5-14.0); White Blood Count 6.4 K/mm3 (4.0-10.5)
[2021-02-07 08:58] LABS: INR 1.05 INR (0.92-1.08); Partial Thrombolplastin Time 26.8 Seconds (24-32); Prothrombin Time (Patient) 10.9 Seconds (9.1-10.7)
[2021-02-07 09:02] LABS: Albumin * 3.1 gm/dl (3.4-5.0); Anion Gap 13.4 mmol/L (6.8-13.8); BUN/Creatinine Ratio 41.3 (9.0-21.6); Bilirubin, Total 0.3 mg/dL (0.0-1.1); Ca. Corrected For Albumin 9.6 mg/dL (8.4-10.2); Calcium * 9.2 mg/dL (7.9-10.9); Carbon Dioxide 25.8 mmol/L (24-32.6); Potassium 3.2 mmol/L (3.4-4.6); Total Protein 6.3 gm/dL (6.2-8.2)
[2021-02-07] MEDS ORDERED: NORMAL SALINE 1,000 ML IV ONE (09:30)
[2021-02-07] MEDS ORDERED: POTASSIUM CHLORIDE IN WATER 100 ML IV ONE (09:33)
[2021-02-07 13:23] LABS: Hematocrit 37.2 % (37.0-47.0); Hemoglobin 11.9 gm/dL (12.5-16.0); Mean Cell Volume 91.9 fl (78-100); Mean Corpuscular Hemoglobin 29.4 pg (27-31); Mean Platelet Volume 10.1 fl (8-12.5); Platelet Count 134 K/mm3 (150-450); Red Blood Count 4.05 M/mm3 (4.2-5.4); Red Cell Distribution Width 14.2 % (11.5-14.0); White Blood Count 5.5 K/mm3 (4.0-10.5)
[2021-02-07] MEDS ORDERED: risperiDONE 1 MG TABLET PO PRN (13:40)
[2021-02-07] MEDS ORDERED: ACETAMINOPHEN 325 MG TABLET PO PRN (13:40)
--- NOTE | 2021-02-07 13:55 | HP ---
Chief Complaint - Chief Complaint Date of Service: 02/07/21 Time of Service: 12:30 Chief Complaint: GI Bleed History of Present Illness: Sidney is an 80 yo female with severe dementia who resides at [facility]. Family reports she had diarrhea over the weekend, but today began having bright red bloody stools. In the ER she was noted to have blood clots passed from the stool. Hemoglobin in the ER was 12.1. She denies abdominal pain, nausea, or vomiting but is not a great historian due to dementia. Her son who is present reports that she has not been complaining about anything. She was recently started on seroquel to help with aggressive behavior she was having in the dementia unit. This has reportedly helped her behavior. She has not had any other recent medication changes. Medical History (Last Reviewed 02/07/21 @ 10:40 by Edison Fry RN) Adjustment disorder with anxious mood (Chronic) Onset Date: 06/05/17 Agitation (Chronic) Arthritis (Chronic) Basal cell carcinoma (Resolved) Blurry vision (Chronic) CVA (cerebral vascular accident) (Chronic) Degeneration of cervical intervertebral disc (Chronic) C-6 & C-7 Dementia, unspecified, with behavioral disturbance (Chronic) Onset Date: 06/05/17 Dizziness (Resolved) Hemorrhoids (Chronic) Hyperlipemia (Chronic) Hypertension (Chronic) Hypokalemia (Chronic) Hypothyroidism (Chronic) Memory loss (Chronic) Meniere's disease (Chronic) Osteopenia (Chronic) Weakness (Acute) Gait disturbance (Acute) Alzheimer's dementia with behavioral disturbance (Chronic) Facial droop (Acute) Rectal bleed (Acute) GI bleed (Acute) Bilateral lower extremity edema (Acute) Bilateral bunions (Acute) Hammer toes, bilateral (Acute) Toe pain, bilateral (Acute) Onychomycosis (Acute) Vertigo (Acute) Altered mental status, unspecified (Acute) Pneumonia (Acute) Hypokalemia (Acute) Agitation (Acute) Surgical History: Surgical History (Last Reviewed 02/07/21 @ 10:40 by Edison Fry RN) History of cataract extraction (Resolved) Hx of cholecystectomy (Resolved) H/O foot surgery (Resolved) UNSPECIFIED X3 Hx of hernia repair (Resolved) Hx of hysterectomy (Resolved) Hx of lumpectomy (Resolved) Hx of shoulder replacement (Resolved) RIGHT Family History: Family History (Last Reviewed 02/07/21 @ 10:40 by Edison Fry RN) Other Unknown family medical history Social History: (Last Reviewed 02/07/21 @ 10:40 by Edison Fry RN) Social History: Marital status: / lives independently: No Service: No Tobacco: Smoking Status: Former smoker Alcohol: alcohol intake: never Substance Use: substance use type: does not use Dietary Habits: caffeine: No Personal Safety: victim of physical abuse: No victim of emotional abuse: No Review Of Systems (GEN) - Review of Systems Additional Comments: ROS unobtainable due to patient condition Immunizations: IMMUNIZATION HX Immunizations Up to Date Yes History of Influenza Vaccine Yes Hx Pneumococcal Vaccination No Allergies/Adverse Reactions: Allergies Allergy/AdvReac Type Severity Reaction Status Date / Time alprazolam [From Xanax] Allergy Unknown Verified 02/07/21 07:13 gabapentin Allergy Unknown Verified 02/07/21 07:13 hydroxyzine Allergy Unknown Verified 02/07/21 07:13 losartan [Losartan] Allergy Unknown Verified 02/07/21 07:13 scopolamine Allergy Unknown Verified 02/07/21 07:13 sulindac [Sulindac] Allergy Unknown Verified 02/07/21 07:13 duloxetine HCl AdvReac Intermediate memory loss Verified 02/07/21 07:13 [From Cymbalta] bupropion [From Zyban] AdvReac Unknown Verified 02/07/21 07:13 lorazepam AdvReac Unknown Verified 02/07/21 07:13 phenylephrine AdvReac Unknown Verified 02/07/21 07:13 [From Murocoll-2] Home Medications: HOME MEDICATIONS docusate sodium 100 mg capsule 100 mg PO DAILY #30 cap 06/26/18 [Last Taken Unknown] acetaminophen 325 mg tablet 650 mg PO Q6H PRN #60 tab 02/16/19 [Last Taken Unknown] donepezil 10 mg tablet 10 mg PO QPM #30 tab 01/05/21 [Last Taken Unknown] levothyroxine 150 mcg tablet 150 mcg PO DAILY #30 tab 01/05/21 [Last Taken Unknown] pantoprazole 40 mg tablet,delayed release 40 mg PO DAILY #30 tablet. 01/05/21 [Last Taken Unknown] simvastatin 40 mg tablet 40 mg PO QPM #30 tab 01/05/21 [Last Taken Unknown] trazodone 50 mg tablet 50 mg PO HS #30 tab 01/05/21 [Last Taken Unknown] quetiapine 50 mg tablet 50 mg PO HS #30 tab 01/31/21 [Last Taken Unknown] Sertraline HCl [Zoloft] 150 mg PO QPM 02/07/21 [Last Taken Unknown] risperiDONE [Risperidone] 1 mg PO BID PRN 02/07/21 [Last Taken Unknown] Exam - Exam Vital Signs: Vital Signs - Last Taken Temp 36.3 C 02/07/21 10:40 Pulse 63 02/07/21 10:40 Resp 18 02/07/21 10:40 BP 147/78 02/07/21 10:40 Pulse Ox 98 02/07/21 10:40 Constitutional: Present: Alert, Cooperative, No distress. Absent: Oriented x3 ENT Exam: Present: hearing grossly normal Eye Exam: bilateral eye: normal inspection Respiratory: Present: lungs clear, normal breath sounds Cardiovascular/Chest: Present: regular rate, rhythm, no murmur Peripheral Pulses: radial (R): 2+, radial (L): 2+ Abdomen: Present: Normal bowel sounds, soft, nondistended, tender Extremity: Present: normal inspection Skin Exam: Present: normal color, warm/dry, no cyanosis Appearance: Present: impaired insight, impaired recent memory, impaired remote memory Eye contact: Present: good eye contact Diagnostic Studies: Abnormal Lab Results 02/07/21 02/07/21 02/07/21 Range/Units 07:57 08:25 08:25 RBC 4.11 L (4.2-5.4) M/mm3 Hgb 12.1 L (12.5-16.0) gm/dL MCHC 31.7 L (32-36) g/dl RDW 14.5 H (11.5-14.0) % Plt Count 133 L (150-450) K/mm3 Lymphocytes % 17.1 L (20-51) % Lymphocytes # 1.09 L (1.5-3.5) k/mm3 PT (9.1-10.7) Seconds Sodium 147 H (132-142) mmol/L Plasma Sodium 147 H (130-142) mmol/L Potassium 3.2 L (3.4-4.6) mmol/L Chloride 111 H (97-106) mmol/L BUN 33 H (3-23) mg/dL BUN/Creatinine Ratio 41.3 H (9.0-21.6) Albumin 3.1 L (3.4-5.0) gm/dl Stool Occult Blood Positive H 02/07/21 02/07/21 Range/Units 08:25 13:18 RBC 4.05 L (4.2-5.4) M/mm3 Hgb 11.9 L (12.5-16.0) gm/dL MCHC (32-36) g/dl RDW 14.2 H (11.5-14.0) % Plt Count 134 L (150-450) K/mm3 Lymphocytes % (20-51) % Lymphocytes # (1.5-3.5) k/mm3 PT 10.9 H (9.1-10.7) Seconds Sodium (132-142) mmol/L Plasma Sodium (130-142) mmol/L Potassium (3.4-4.6) mmol/L Chloride (97-106) mmol/L BUN (3-23) mg/dL BUN/Creatinine Ratio (9.0-21.6) Albumin (3.4-5.0) gm/dl Stool Occult Blood Laboratory Results WBC 5.5 K/mm3 (4.0-10.5) 02/07/21 13:18 RBC 4.05 M/mm3 (4.2-5.4) L 02/07/21 13:18 Hgb 11.9 gm/dL (12.5-16.0) L 02/07/21 13:18 Hct 37.2 % (37.0-47.0) 02/07/21 13:18 MCV 91.9 fl (78-100) 02/07/21 13:18 MCH 29.4 pg (27-31) 02/07/21 13:18 MCHC 32.0 g/dl (32-36) 02/07/21 13:18 RDW 14.2 % (11.5-14.0) H 02/07/21 13:18 Plt Count 134 K/mm3 (150-450) L 02/07/21 13:18 MPV 10.1 fl (8-12.5) 02/07/21 13:18 Immature Gran % (Auto) 0.30 % (0.001-0.429) 02/07/21 08:25 Immature Gran # (Auto) 0.02 K/mm3 (0.000-0.0310) 02/07/21 08:25 Neutrophils % 73.3 % (42-75.0) 02/07/21 08:25 Lymphocytes % 17.1 % (20-51) L 02/07/21 08:25 Monocytes % 8.3 % (0.0-9) 02/07/21 08:25 Eosinophils % 0.8 % (0.0-3.0) 02/07/21 08:25 Basophils % 0.2 % (0.0-1.0) 02/07/21 08:25 Nucleated RBC % 0.0 k/mm3 (0-1) 02/07/21 08:25 Neutrophils # 4.7 K/mm3 (1.3-6.0) 02/07/21 08:25 Lymphocytes # 1.09 k/mm3 (1.5-3.5) L 02/07/21 08:25 Monocytes # 0.5 k/mm3 (0.0-1.0) 02/07/21 08:25 Eosinophils # 0.1 k/mm3 (0.0-0.7) 02/07/21 08:25 Absolute Basophils 0.0 k/mm3 (0.0-0.1) 02/07/21 08:25 PT 10.9 Seconds (9.1-10.7) H 02/07/21 08:25 INR (Anticoag Therapy) 1.05 INR (0.92-1.08) 02/07/21 08:25 PTT ([place]) 26.8 Seconds (24-32) 02/07/21 08:25 Sodium 147 mmol/L (132-142) H 02/07/21 08:25 Plasma Sodium 147 mmol/L (130-142) H 02/07/21 08:25 Potassium 3.2 mmol/L (3.4-4.6) L 02/07/21 08:25 Chloride 111 mmol/L (97-106) H 02/07/21 08:25 Carbon Dioxide 25.8 mmol/L (24-32.6) 02/07/21 08:25 Anion Gap 13.4 mmol/L (6.8-13.8) 02/07/21 08:25 BUN 33 mg/dL (3-23) H 02/07/21 08:25 Creatinine 0.80 mg/dL (0.4-1.4) 02/07/21 08:25 Est GFR (Non-Af Amer) 73 mL/min (60-130) D 02/07/21 08:25 BUN/Creatinine Ratio 41.3 (9.0-21.6) H 02/07/21 08:25 Random Glucose 88 mg/dL (70-110) 02/07/21 08:25 Calcium 9.2 mg/dL (7.9-10.9) 02/07/21 08:25 Calcium Adj for Albumin 9.6 mg/dL (8.4-10.2) 02/07/21 08:25 Total Bilirubin 0.3 mg/dL (0.0-1.1) 02/07/21 08:25 AST 21 U/L (0-48) 02/07/21 08:25 ALT 23 U/L (19-67) 02/07/21 08:25 Alkaline Phosphatase 82 U/L (50-170) 02/07/21 08:25 Total Protein 6.3 gm/dL (6.2-8.2) 02/07/21 08:25 Albumin 3.1 gm/dl (3.4-5.0) L 02/07/21 08:25 Stool Occult Blood Positive H 02/07/21 07:57 SARS-CoV-2 (PCR) Not detected (NotDetected) 02/07/21 09:25 Assessment/Plan - Narrative Narrative: Sidney is an 80 yo female with GI bleed and anemia. Bright red blood with clots started this morning. Hgb is 12.1 so no significant blood loss. Will admit to observation and do serial hemograms. Will start IV protonix 40mg q12 i ncase it is upper GI bleeding but suspect lower bleed due to color. Due to her baseline condition she is not a candidate for aggressive investigation. If hemoglobin is stable and bleeding subsides she may be discharged tomorrow, if bleeding persists and hemoglobin falls significantly may consider transfusion and nuclear bleeding scan. I would not recommend endoscopy due to her age and dementia at this time. - Assessment/Plan (1) GI bleed Problem: Acute Qualifiers: GI bleed type/associated pathology: unspecified gastrointestinal hemorrhage type Qualified Code(s): K92.2 - Gastrointestinal hemorrhage, unspecified (2) Anemia Problem: Acute Qualifiers: Anemia type: other cause
[2021-02-07] MEDS: PANTOPRAZOLE SODIUM 40 MG in NORMAL SALINE 100 ML IV SCH (15:19)
[2021-02-07] MEDS ORDERED: DONEPEZIL HCL 10 MG TABLET PO SCH (17:00)
[2021-02-07] MEDS ORDERED: SERTRALINE HCL 50 MG TABLET PO SCH (17:00)
[2021-02-07] MEDS ORDERED: QUEtiapine FUMARATE 25 MG TABLET PO SCH (21:00)
[2021-02-07] MEDS ORDERED: traZODone HCL 50 MG TABLET PO SCH (21:00)
[2021-02-07] MEDS ORDERED: DEXTROSE 5%-0.5 NORMAL SALINE 1,000 ML IV PRN (23:28)
[2021-02-08] MEDS: PANTOPRAZOLE SODIUM 40 MG in NORMAL SALINE 100 ML IV SCH (00:09)
[2021-02-08 06:37] LABS: Hematocrit 35.7 % (37.0-47.0); Hemoglobin 11.7 gm/dL (12.5-16.0); Mean Cell Volume 91.1 fl (78-100); Mean Corpuscular Hemoglobin 29.8 pg (27-31); Mean Corpuscular Hgb Conc 32.8 g/dl (32-36); Mean Platelet Volume 9.9 fl (8-12.5); Neutrophil # 2.9 K/mm3 (1.3-6.0); Platelet Count 122 K/mm3 (150-450); Red Blood Count 3.92 M/mm3 (4.2-5.4); Red Cell Distribution Width 14.6 % (11.5-14.0); White Blood Count 4.6 K/mm3 (4.0-10.5)
[2021-02-08 06:55] LABS: Albumin * 2.9 gm/dl (3.4-5.0); Anion Gap 12.1 mmol/L (6.8-13.8); BUN/Creatinine Ratio 25.3 (9.0-21.6); Bilirubin, Total 0.4 mg/dL (0.0-1.1); Calcium * 8.4 mg/dL (7.9-10.9); Carbon Dioxide 24.8 mmol/L (24-32.6); Potassium 2.9 mmol/L (3.4-4.6); Total Protein 5.8 gm/dL (6.2-8.2)
[2021-02-08] MEDS ORDERED: LEVOTHYROXINE SODIUM 150 MCG TABLET PO SCH (07:00)
[2021-02-08] MEDS ORDERED: POTASSIUM CHLORIDE 20 MEQ TABLET.SA PO ONE (09:00)
[2021-02-08] MEDS: POTASSIUM CHLORIDE IN WATER 100 ML IV SCH ×4 (09:19→13:04)
--- NOTE | 2021-02-08 13:36 | DS ---
(1) GI bleed Problem: Suspected Qualifiers: GI bleed type/associated pathology: unspecified gastrointestinal hemorrhage type Qualified Code(s): K92.2 - Gastrointestinal hemorrhage, unspecified (2) Hypokalemia Problem: Acute (3) Anemia Problem: Acute Qualifiers: Anemia type: other cause (4) Dementia, unspecified, with behavioral disturbance Problem: Chronic Date of Discharge:: 02/08/21 Hospital Course: Sidney was admitted for acute bright red GI bleed. Her hgb was 12.1 on admi ssion. She was given IV protonix and made NPO. Hgb was monitored and was relatively stable and only dropped to 11.7 in about 24 hours. She stopped having bloody bowel movements. Her dementia is chronic. Her potassium was a little low at 2.9 and was replaced at discharge. Will recheck as outpatient. Procedures Performed: none Results and Findings: Lab Pending Results 02/07/21 07:57: Stool Occult Blood Positive H 02/07/21 08:25: WBC 6.4, RBC 4.11 L, Hgb 12.1 L, Hct 38.2, MCV 92.9, MCH 29.4, MCHC 31.7 L, RDW 14.5 H, Plt Count 133 L, MPV 9.6, Immature Gran % (Auto) 0.30, Immature Gran # (Auto) 0.02, Neutrophils % 73.3, Lymphocytes % 17.1 L, Monocytes % 8.3, Eosinophils % 0.8, Basophils % 0.2, Nucleated RBC % 0.0, Neutrophils # 4.7, Lymphocytes # 1.09 L, Monocytes # 0.5, Eosinophils # 0.1, Absolute Basophils 0.0 02/07/21 08:25: Sodium 147 H, Plasma Sodium 147 H, Potassium 3.2 L, Chloride 111 H, Carbon Dioxide 25.8, Anion Gap 13.4, BUN 33 H, Creatinine 0.80, Est GFR (Non- Af Amer) 73 D, BUN/Creatinine Ratio 41.3 H, Random Glucose 88, Calcium 9.2, Calcium Adj for Albumin 9.6, Total Bilirubin 0.3, AST 21, ALT 23, Alkaline Phosphatase 82, Total Protein 6.3, Albumin 3.1 L 02/07/21 08:25: PT 10.9 H, INR (Anticoag Therapy) 1.05, PTT ([place]) 26.8 02/07/21 08:25: Blood Type A Negative, Antibody Screen Negative 02/07/21 09:25: SARS-CoV-2 (PCR) Not detected 02/07/21 13:18: WBC 5.5, RBC 4.05 L, Hgb 11.9 L, Hct 37.2, MCV 91.9, MCH 29.4, MCHC 32.0, RDW 14.2 H, Plt Count 134 L, MPV 10.1 02/08/21 06:35: WBC 4.6, RBC 3.92 L, Hgb 11.7 L, Hct 35.7 L, MCV 91.1, MCH 29.8, MCHC 32.8, RDW 14.6 H, Plt Count 122 L, MPV 9.9, Immature Gran % (Auto) 0.40, Immature Gran # (Auto) 0.02, Neutrophils % 62.0, Lymphocytes % 25.7, Monocytes % 9.1 H, Eosinophils % 2.6, Basophils % 0.2, Nucleated RBC % 0.0, Neutrophils # 2.9, Lymphocytes # 1.19 L, Monocytes # 0.4, Eosinophils # 0.1, Absolute Basophils 0.0 02/08/21 06:35: Sodium 145 H, Plasma Sodium 145 H, Potassium 2.9 L, Chloride 111 H, Carbon Dioxide 24.8, Anion Gap 12.1, BUN 21, Creatinine 0.83, Est GFR (Non-Af Amer) 70, BUN/Creatinine Ratio 25.3 H, Random Glucose 90, Calcium 8.4, Calcium Adj for Albumin 9.0, Total Bilirubin 0.4, AST 30, ALT 27, Alkaline Phosphatase 80, Total Protein 5.8 L, Albumin 2.9 L Discharge Location: [facility] Disposition: Home self-care Condition: Fair Discharge Activity: Activity as tolerated Discharge Diet: General/regular food Referrals: Graham Jackson DO [Primary Care Provider] - (May do video visit prn) Problem Oriented Discharge Instructions to Patient/Family: Gastrointestinal Bleeding, [id number], Hypokalemia Complete Home Medications List: Complete Home Medication List: docusate sodium 100 mg capsule 100 mg PO DAILY #30 cap 06/26/18 acetaminophen 325 mg tablet 650 mg PO Q6H PRN #60 tab 02/16/19 donepezil 10 mg tablet 10 mg PO QPM #30 tab 01/05/21 levothyroxine 150 mcg tablet 150 mcg PO DAILY #30 tab 01/05/21 pantoprazole 40 mg tablet,delayed release 40 mg PO DAILY #30 tablet. 01/05/21 simvastatin 40 mg tablet 40 mg PO QPM #30 tab 01/05/21 trazodone 50 mg tablet 50 mg PO HS #30 tab 01/05/21 quetiapine 50 mg tablet 50 mg PO HS #30 tab 01/31/21 Sertraline HCl [Zoloft] 150 mg PO QPM 02/07/21 risperiDONE [Risperidone] 1 mg PO BID PRN 02/07/21 Amb Orders for Discharge: Basic Metabolic Panel Time Frame: 02/13/21, Facility: [facility], Location: Laboratory Forms: Patient Portal Registration
[2021-02-08 14:28] VITALS: BP 175/78
== END 2021-02-08 14:55 | disposition home or self-care (01) ==
LOC: MS 07:08 → ER 07:08 → MS 10:42
PROVIDERS: ADMIT Family Medicine; ATTEND Family Medicine